=== PATIENT | male | born 1970 | race Caucasian/White ===

== ENCOUNTER 2021-03-08 08:46 | Emergency (ER) | payer SELFPAY ==
--- NOTE | 2021-03-08 08:47 | W.ED.ABDPA2 ---
HPI - Abdominal Pain General: Chief Complaint: Abdominal Pain Stated Complaint: abd pain Time Seen by Provider: 03/08/21 08:47 History of Present Illness: HPI narrative: 50-year-old male presents emergency room with complaint of abdominal pain and small amount of rectal bleeding. He has chronic epigastric discomfort and reflux. He takes omeprazole regularly. Patient is a history of hemorrhoids around a year ago he had a colonoscopy there was no significant findings other than the hemorrhoids at that time and he underwent surgery for the hemorrhoids. He is not had any fever sweats or chills no nausea vomiting or diarrhea, no melena hematemesis or cough coffee-ground emesis. He had a couple loose stools with streaks of bright red blood he describes his stools as light-colored. No history of upper GI bleed in the past Denies fever shortness of breath denies any dysuria urgency or frequency MD elicited complaint: abdominal pain Pertinent past history: other (Hemorrhoids) Onset (ago): hour(s) Pain Consistency: intermittent Location: Epigastric and LUQ Severity: mild Quality: cramping and aching Radiation: none Migration to: no migration Exacerbating factors: eating Relieving factors: nothing Associated Symptoms: Reports bloating, change in stool character, hematochezia, nausea and poor appetite; Denies anorexia, belching, change in bowel habits, chills, coffee ground emesis, constipation, GI cramping, diarrhea, dyspepsia, dysuria, excessive flatus, fever(s), heartburn, hematuria, hematemesis, fecal incontinence, loose stools, melena, syncope and vomiting Review of Systems Const: Denies: fever(s) or chills ENMT: Denies: throat pain, ear or mastoid pain, nasal discharge or nasal congestion Card: Denies: syncope Resp: Denies: dyspnea, productive cough or non-productive cough GI: Reports: nausea, bloating, change in stool character and hematochezia; Denies: vomiting, hematemesis, coffee ground emesis, heartburn, diarrhea, constipation, GI cramping, belching, excessive flatus, fecal incontinence, change in bowel habits or melena : Denies: dysuria or hematuria Skin/Breast: Denies: rash or pruritus Physical Exam Const: COMMON NORMALS: no acute distress GENERAL APPEARANCE: cooperative and comfortable ORIENTATION/CONSCIOUSNESS: Yes awake, Yes oriented to person, Yes oriented to place and Yes oriented to time HENMT: COMMON NORMALS: normocephalic, atraumatic, hearing grossly normal bilaterally and external ears normal HEAD & SCALP: normocephalic and atraumatic EXTERNAL EAR: Yes external ears normal Neck/C-Spine: COMMON NORMALS: no JVD Resp: COMMON NORMALS: normal respiratory effort, No retractions, No use of accessory muscles and clear to auscultation bilaterally AUSCULTATION: clear to auscultation bilaterally Cardio: COMMON NORMALS: no JVD, regular rate, regular rhythm and No murmurs present (Cardio) RATE: regular rate RHYTHM: regular rhythm GI: COMMON NORMALS: Soft to palpation and No hepatosplenomegaly present AUSCULTATION: Yes normoactive bowel sounds PALPATION: Yes Soft to palpation, No Tenderness to palpation present (GI), No Guarding due to palpation present (GI) and Yes No hepatosplenomegaly present OTHER: On rectal exam there are small noninflamed hemorrhoids at the rectal urge none appear to be thrombosed there is no active bleeding no fissures that I can identify. Extremity: COMMON NORMALS: normal to inspection, capillary refill normal, no clubbing, cyanosis or edema, no calf tenderness and no pedal edema Neuro: SENSORIUM/ORIENTATION: Yes oriented to person, Yes oriented to place and Yes oriented to time Skin: COMMON NORMALS: no rashes or lesions noted GENERAL SKIN EXAM: no rashes or lesions noted Course Vital Signs: Vital signs: Vital Signs Temperature 97.3 F L 03/08/21 08:49 Pulse Rate 74 03/08/21 10:49 Respiratory Rate 15 03/08/21 10:49 Blood Pressure 146/93 03/08/21 10:49 Pulse Oximetry 93 03/08/21 10:49 MDM - Abdominal Pain MDM Narrative: Medical decision making narrative: Patient had colonoscopy a year ago and had hemorrhoid surgery subsequent to it. He had some left upper quadrant pain earlier but has not had any hematemesis. Has not had any melenic stools. Aileen go ahead and discharge him home with some Anusol as well as pantoprazole we will set him up to see surgery for possible EGD and evaluation of the hemorrhoids. His hemoglobin is 15 3 there is no active bleeding and think he can be safely discharged at this point return if he has problems. Lab Data: Labs: Lab Results 03/08/21 03/08/21 03/08/21 Range/Units 09:05 09:05 09:12 WBC 10.2 H (4.0-10.0) 10^3/ uL RBC 5.17 (4.1-5.3) 10^6/u L Hgb 15.3 (11.7-16.6) g/dL Hct 44.7 (42.0-52.0) % MCV 86.5 (80-94) fL MCH 29.6 (28.0-34.0) pg MCHC 34.2 (30.0-36.0) g/dL RDW 12.2 (12.1-15.1) % Plt Count 288 (130-400) 10^3/c mm MPV 10.6 H (7.4-10.4) fL Neut % (Auto) 67.2 % Lymph % (Auto) 21.2 % [place] % (Auto) 7.3 % Eos % (Auto) 3.3 % Baso % (Auto) 0.6 % Neut # (Auto) 6.87 (1.8-7.7) 10^3/u L Lymph # (Auto) 2.2 (0.8-4.8) 10^3/u L [place] # (Auto) 0.8 (0.2-0.9) 10^3/u L Eos # (Auto) 0.3 (0.0-0.8) 10^3/u L Baso # (Auto) 0.1 (0.0-0.1) 10^3/u L Nucleated RBC % (a uto) 0 % Nucleated RBCs # 0.0 /100WBC Sodium 137 (136-145) mmol/L Potassium 3.8 (3.5-5.1) mmol/L Chloride 99 (98-107) mmol/L Carbon Dioxide 26 (22-29) mmol/L Anion Gap 15.8 (5-19) BUN 11 (6-20) mg/dL Creatinine 0.6 L (0.7-1.2) mg/dL GFR Calculation 143.2 H (90-130) mL/min Glucose 122 H (65-115) mg/dL Calculated Osmolal ity 285 (285-295) mOsm/k g Calcium 8.7 (8.5-10.5) mg/dL Total Bilirubin 0.5 (0.15-1.2) mg/dL AST 20 (0-40) U/L ALT 30 (0-41) U/L Alkaline Phosphata se 62 (40-130) IU/L Total Protein 7.5 (6.6-8.7) g/dL Albumin 4.3 (3.5-5.2) g/dL Globulin 3.2 (1.3-4.6) g/dL Lipase 46 (13-60) U/L Urine Color Yellow (Yellow) Urine Appearance Clear (CLEAR) Urine pH 9 H (5-7) Ur Specific Gravit y 1.015 (1.005-1.030) Urine Protein Neg (Negative) Urine Glucose (UA) Norm (Normal) Urine Ketones Negative (Negative) Urine Blood Neg (Negative) Urine Nitrate Negative (Negative) Urine Bilirubin Neg (Negative) Prot Sulfosalicyli c Acd Negative (Negative) Urine Urobilinogen Norm (Negative) mg/dL Ur Leukocyte Monika ase Negative (Negative) Discharge Plan Discharge Patient Disposition: Home Clinical Impression: Rectal bleeding Condition: Stable Prescriptions: New pantoprazole 40 mg tablet,delayed release (DR/EC) 40 mg PO DAILY 56 Days RF: 0 Anucort-HC 25 mg suppository 25 mg WA TID 14 Days Qty: 42 RF: 0 Discharge Orders: Discharge ED (Routine); Ordered 03/08/21 Ordered By: Geronimo Saleh Discharge Diet: Usual diet Discharge Activity: Increase activity as tolerated Patient Instructions: Opioid Safety Activity Restrictions/Additional Instructions: Case management will call you to follow-up with surgery. Coding Level of Care Code ED Release Of Information Clerk for Jhonatan Fwd Exam Comprehensive
[2021-03-08 08:49] VITALS: BP 139/100; PULSE 76; RESP 16; TEMP 36.3; O2SAT 97; BMI 31.1
[2021-03-08 09:15] LABS: Basophils # 0.1 10^3/uL (0.0-0.1); Basophils % 0.6 %; Eosinophils # 0.3 10^3/uL (0.0-0.8); Eosinophils % 3.3 %; Hematocrit 44.7 % (42.0-52.0); Hemoglobin 15.3 g/dL (11.7-16.6); Lymphocytes # 2.2 10^3/uL (0.8-4.8); Lymphocytes % 21.2 %; Mean Corpuscular HGB Conc 34.2 g/dL (30.0-36.0); Mean Corpuscular Hemoglobin 29.6 pg (28.0-34.0); Mean Corpuscular Volume 86.5 fL (80-94); Mean Platelet Volume 10.6 fL (7.4-10.4); Monocytes # 0.8 10^3/uL (0.2-0.9); Monocytes % 7.3 %; Neutrophils # 6.87 10^3/uL (1.8-7.7); Neutrophils % 67.2 %; Nucleated Red Blood Cells % 0 %; Platelet Count 288 10^3/cmm (130-400); Red Blood Count 5.17 10^6/uL (4.1-5.3); Red Cell Distribution Width 12.2 % (12.1-15.1); White Blood Count 10.2 10^3/uL (4.0-10.0)
[2021-03-08 09:18] LABS: Add Urine Microscopic? NO; Charge for UA Resulting for Rev
[2021-03-08 09:21] LABS: Bilirubin Urine Neg (Negative); Blood Urine Neg (Negative); Glucose Urine UA Norm (Normal); Ketones Urine Negative (Negative); Leukocyte Esterase Urine Negative (Negative); Nitrate Urine Negative (Negative); Protein Urine Neg (Negative); Specific Gravity, Urine 1.015 (1.005-1.030); Sulfosalicylic Acid Urine Negative (Negative); Urine Appearance Clear (CLEAR); Urine Color Yellow (Yellow); Urobilinogen Urine Norm (Negative); pH Urine 9 (5-7)
[2021-03-08 09:38] LABS: Alanine Aminotransferase 30 U/L (0-41); Albumin Level 4.3 g/dL (3.5-5.2); Alkaline Phosphatase 62 IU/L (40-130); Anion Gap 15.8 (5-19); Aspartate Amino Transferase 20 U/L (0-40); Blood Urea Nitrogen 11 mg/dL (6-20); Calcium 8.7 mg/dL (8.5-10.5); Carbon Dioxide 26 mmol/L (22-29); Chloride 99 mmol/L (98-107); Globulin 3.2 g/dL (1.3-4.6); Glomerular Filtration Rate 143.2 mL/min (90-130); Glucose 122 mg/dL (65-115); Lipase 46 U/L (13-60); Osmolality Calculated 285 mOsm/kg (285-295); Potassium 3.8 mmol/L (3.5-5.1); Sodium 137 mmol/L (136-145); Total Bilirubin 0.5 mg/dL (0.15-1.2); Total Protein 7.5 g/dL (6.6-8.7)
[2021-03-08 10:49] VITALS: BP 146/93; PULSE 74; RESP 15; O2SAT 93
--- NOTE | 2021-03-08 14:20 | DCPLANNER ---
Addendum entered by Eleanor Clark 03/12/21 07:04: manager agriculture was told that clinic called patient to schedule a follow appointment and that patient stated that he would call the clinic back to schedule a follow up appointment. Original Note: manager agriculture had message to schedule a follow up appointment for patient with general surgery. manager agriculture emailed patients information to Nelia at [facility] General Surgery. Patients information will be printed and reviewed. Clinic will call patient with appointment information.
== END 2021-03-08 10:50 | disposition home or self-care (01) ==
PROVIDERS: Emergency Provider Family Medicine
DX: K62.5 Hemorrhage of anus and rectum (principal)
CPT/HCPCS: 80053; 81003; 83690; 85025; 99282

== ENCOUNTER 2024-04-03 18:30 | Inpatient (IN) | payer SELFPAY ==
[2024-04-03] VITALS (7 sets, daily range): BP systolic 117–170; BP diastolic 80–116; PULSE 84–130; RESP 16–20; TEMP 37.1; O2SAT 93–99; BMI 34.2
--- NOTE | 2024-04-03 19:43 | XRR_ITS ---
PROCEDURE INFORMATION: Exam: XR Chest Exam date and time: 04/03/2024 8:01 PM Age: 54 years old Clinical indication: Patient HX: C/O palpitations. TECHNIQUE: Imaging protocol: Radiologic exam of the chest. Views: 1 view. COMPARISON: No relevant prior studies available. FINDINGS: Lungs: Unremarkable. No consolidation. Pleural spaces: Unremarkable. No pleural effusion. No pneumothorax. Heart/Mediastinum: Unremarkable. No cardiomegaly. Bones/joints: Unremarkable. XR/XR chest 1V portable [id number] IMPRESSION: No acute findings.
--- NOTE | 2024-04-03 19:43 | ECG_ITS ---
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 Measurements Intervals [place] Rate: 108 P: 29 WA: 175 QRS: 5 QRSD: 92 T: 53 QT: 315 QTc: 423 Interpretive Statements SINUS TACHYCARDIA NONSPECIFIC T-WAVE ABNORMALITY ABNORMAL RHYTHM ECG No previous ECG available for comparison Electronically Signed On 04-04-2024 13:27:47 CDT by Leoncio Bahena M.D. [email or web address] Labsohiohealth riverside [email or web address]/[id number]
--- NOTE | 2024-04-03 19:52 | CTR_ITS ---
PROCEDURE INFORMATION: Exam: CT Abdomen And Pelvis Without Contrast Exam date and time: 04/03/2024 8:09 PM Age: 54 years old Clinical indication: Abdominal pain; Patient HX: C/O left flank pain. ; Additional info: L flank pain TECHNIQUE: Imaging protocol: Computed tomography of the abdomen and pelvis without contrast. Radiation optimization: All CT scans at this facility use at least one of these dose optimization techniques: automated exposure control; mA and/or kV adjustment per patient size (includes targeted exams where dose is matched to clinical indication); or iterative reconstruction. COMPARISON: CR (CHEST, ) 04/03/2024 8:01 PM RADIATION DOSE METRICS: Total DLP (mGy-cm): 954.26 FINDINGS: Liver: Hepatic steatosis. Gallbladder and biliary ducts: Normal. No calcified stones. No ductal dilation. Pancreas: Normal. No ductal dilation. Spleen: Normal. No splenomegaly. Adrenal glands: Normal. No mass. Kidneys and ureters: Normal. No hydronephrosis. Stomach and bowel: Prominent fluid in the stomach and small bowel may reflect a gastroenteritis. Appendix: No evidence of appendicitis. Intraperitoneal space: Unremarkable. No free air. No significant fluid collection. Vasculature: Unremarkable. No abdominal aortic aneurysm. Lymph nodes: Unremarkable. No enlarged lymph nodes. Urinary bladder: Urinary bladder wall thickening with surrounding edema, please correlate for cystitis. Reproductive: Prostate gland enlarged. Bones/joints: Unremarkable. No acute fracture. Soft tissues: Small bilateral fat containing inguinal hernias without bowel or inflammation. CT/CT kidney stone [id number] IMPRESSION: 1. Prominent fluid in the stomach and small bowel may reflect a gastroenteritis. 2. Urinary bladder wall thickening with surrounding edema, please correlate for cystitis. 3. Prostate gland enlarged. 4. Hepatic steatosis. 5. Small bilateral fat containing inguinal hernias without bowel or inflammation.
[2024-04-03 20:04] LABS: Basophils # 0.1 10^3/uL (0.0-0.1); Basophils % 0.3 %; Eosinophils # 10.6 10^3/uL (0.0-0.8); Eosinophils % 33.8 %; Hematocrit 47.6 % (37-53); Lymphocytes # 2.2 10^3/uL (0.8-4.8); Lymphocytes % 7.1 %; Mean Corpuscular HGB Conc 35.7 g/dL (30-55); Mean Corpuscular Hemoglobin 30.6 pg (27-33); Mean Corpuscular Volume 85.6 fl (82-101); Mean Platelet Volume 10.4 fL (7.4-10.4); Monocytes # 1.9 10^3/uL (0.2-0.9); Monocytes % 6.2 %; Neutrophils # 16.23 10^3/uL (1.8-7.7); Neutrophils % 52.1 %; Nucleated Red Blood Cells % 0 %; Platelet Count 294 10^3/cmm (157-399); Red Blood Count 5.56 10^6/uL (3.85-5.65); Red Cell Distribution Width 13.1 % (12.1-15.1)
[2024-04-03] MEDS: ondansetron 2 mg/ML SDV 2 mL 4 MG IVP (20:07)
[2024-04-03] MEDS: ketorolac 30 mg/mL INJ IVP (20:07)
[2024-04-03] MEDS: sodium chloride 0.9% 1,000 ML 999 ML IV ×2 (20:07→22:14)
[2024-04-03 20:16] LABS: Amphetamines Screen Urine Negative (Negative); Barbiturates Screen Urine Negative (Negative); Benzodiazepines Screen Urine Negative (Negative); Cocaine Screen Urine Negative (Negative); Opiate Screen Urine Negative (Negative); PCP Screen Urine Negative (Negative); THC Screen Urine Negative (Negative)
[2024-04-03 20:22] LABS: Alanine Aminotransferase 29 U/L (0-41); Albumin Level 4.6 g/dL (3.5-5.2); Alkaline Phosphatase 76 U/L (40-130); Anion Gap 18.7 (5-19); Aspartate Amino Transferase 16 U/L (0-40); Blood Urea Nitrogen 10 mg/dL (6-20); C Reactive Protein 95.5 mg/L (0.0-4.9); Calcium 9.8 mg/dL (8.5-10.5); Carbon Dioxide 23 mmol/L (22-29); Chloride 96 mmol/L (98-107); Creatinine Clr Calc Pharmacy 135.3817; Globulin 3.8 g/dL (1.3-4.6); Glomerular Filtration Rate 101.1 mL/min (90-130); Glucose 152 mg/dL (65-115); Osmolality Calculated 280 mOsm/kg (285-295); Potassium 3.7 mmol/L (3.5-5.1); Sodium 134 mmol/L (136-145); Total Bilirubin 0.8 mg/dL (0.15-1.2); Total Protein 8.4 g/dL (6.6-8.7)
[2024-04-03 20:25] LABS: Slide Review Slide Review Perform; White Blood Count 31.17 10^3/uL (3.29-11.43)
[2024-04-03 20:31] LABS: Add Urine Microscopic? YES; Bilirubin Urine Neg (Negative); Blood Urine 2+ (Negative); Glucose Urine UA Norm (Normal); Ketones Urine 1+ (Negative); Leukocyte Esterase Urine 2+ (Negative); Nitrate Urine Negative (Negative); Protein Urine Trace (Negative); Urine Appearance Cloudy (CLEAR); Urine Color Yellow (Yellow); Urobilinogen Urine Neg (Negative); pH Urine 9 (5-7)
[2024-04-03 20:32] LABS: Add Urine Culture? Yes; Bacteria Urine 1+ /hpf; Squamous Epithelial Cell Urine 0-4 /hpf (0-5); WBC Urine 55-80 /hpf (0-5)
--- NOTE | 2024-04-03 20:42 | ED_ITS ---
HPI - Abdominal Pain 2 General: Chief Complaint: Abdominal Pain Stated Complaint: Fever,N/V Time Seen by Provider: 04/03/24 19:13 History of Present Illness: 54-year-old male presents emergency depa rtment chief complaint of left-sided flank pain rating to his left anterior abdomen has been progressively worse last couple days patient report [place] is moderate nausea no vomiting reports no bowel changes reports also significant urinary frequency and burning and pain patient does not endorse any blood in his urine patient presents to the ER due to being persistently uncomfortable he does not endorse any prior history of any abdominal issues. Associated Symptoms: Reports GI cramping, dysuria and nausea; Denies chills, fever(s) and vomiting Review of Systems 2 General: Reports: 10 or more systems reviewed and unremarkable except in HPI and below Const: Denies: fever(s), chills, fatigue or malaise Eyes: Denies: change in vision or blurry vision Card: Denies: chest pain or palpitations Resp: Denies: dyspnea or productive cough GI: Reports: abdominal pain, nausea and GI cramping; Denies: vomiting : Reports: flank pain, dysuria, urinary frequency and urinary urgency Musc: Denies: extremity pain or extremity swelling Skin/Breast: Denies: rash or pruritus Neuro: Denies: headache(s) Psych: Denies: anxiety or depression Donny/Lymph: Denies: easy bleeding All/Imm: Denies: urticaria, throat swelling or facial swelling Physical Exam 2 Const: COMMON NORMALS: patient oriented x3 and healthy appearing; apparent distress (Patient is moderate distress due to pain) HENMT: COMMON NORMALS: normocephalic and atraumatic HEAD & SCALP: n ormocephalic and atraumatic Eye: COMMON NORMALS: Equal, round and reactive pupils present and EOMs intact bilaterally PUPIL: Yes Equal, round and reactive pupils present Neck/C-Spine: COMMON NORMALS: full ROM, supple and no JVD Lymph: LYMPHATIC: no lymphadenopathy noted Chest: COMMONS NORMALS: normal inspection of the chest and normal palpation of entire chest wall Resp: COMMON NORMALS: normal respiratory effort, No retractions and clear to auscultation bilaterally EFFORT & INSPECTION: Yes able to speak in complete sentences and Yes symmetric chest movement AUSCULTATION: clear to auscultation bilaterally Cardio: COMMON NORMALS: no JVD, regular rate and regular rhythm RATE: r egular rate RHYTHM: regular rhythm GI: COMMON NORMALS: negative for Normal to inspection, nondistended, normoactive bowel sounds present, negative for Soft to palpation, negative for non-tender (Moderate pain to palpation most located to the left lateral flank and left ) and negative for no bruits (Moderate diffuse guarding appreciated) INSPECTION: Yes normal to inspection PALPATION: No Soft to palpation : COMMON NORMALS: Yes no CVA tenderness BLADDER/KIDNEY EXAM: Yes no CVA tenderness Back/Pelvis: COMMON NORMALS: no CVA tenderness Extremity: COMMON NORMALS: normal to inspection and full ROM Neuro: COMMON NORMALS: patient oriented x3, CN's II-XII intact bilaterally, moves all extremities and no focal motor deficits Psych: COMMON NORMALS: mental status grossly normal, Normal thought process present, cooperative and normal affect THOUGHT PROCESS: Normal thought process present Skin: COMMON NORMALS: no rashes or lesions noted GENERAL SKIN EXAM: no rashes or lesions noted Course 2 Vital Signs: Vital signs: Vital Signs Temperature 98.8 F 04/03/24 18:35 Pulse Rate 94 04/03/24 21:31 Respiratory Rate 16 04/03/24 21:31 Blood Pressure 117/80 04/03/24 21:31 Pulse Oximetry 94 04/03/24 21:31 Oxygen Delivery Me thod Room Air 04/03/24 21:31 MDM - Abdominal Pain Medical Decision Making Due to patient's symptoms and condition IV is established IV fluids were given for hydration lab work imaging obtained underlying concerns of kidney stone versus others prominent we will continue to follow CT imaging revealed significant findings suggestive of significant site cystitis patient had no renal impairment but has substantial white count as well as lactic acid elevation underlying concerns of sepsis is prominent discussed patient's case with Dr. Carrera. Patient was updated that he is agreeable to admission. Lab Data 04/03/24 19:55 04/03/24 19:55 Labs/Radiology: Radiology Impressions Chest X-Ray 04/03/24 19:43 IMPRESSION: No acute findings. Abdomen/Pelvis CT 04/03/24 19:52 IMPRESSION: 1. Prominent fluid in the stomach and small bowel may reflect a gastroenteritis. 2. Urinary bladder wall thickening with surrounding edema, please correlate for cystitis. 3. Prostate gland enlarged. 4. Hepatic steatosis. 5. Small bilateral fat containing inguinal hernias without bowel or inflammation. Laboratory Results WBC 31.17 10^3/uL (3.29-11.43) H* 04/03/24 19:55 RBC 5.56 10^6/uL (3.85-5.65) 04/03/24 19:55 Hgb 17.00 g/dL (11.27-16.99) H 04/03/24 19:55 Hct 47.6 % (37-53) 04/03/24 19:55 MCV 85.6 fl (82-101) 04/03/24 19:55 MCH 30.6 pg (27-33) 04/03/24 19:55 MCHC 35.7 g/dL (30-55) 04/03/24 19:55 RDW 13.1 % (12.1-15.1) 04/03/24 19:55 Plt Count 294 10^3/cmm (157-399) 04/03/24 19:55 MPV 10.4 fL (7.4-10.4) 04/03/24 19:55 Neut % (Auto) 52.1 % 04/03/24 19:55 Lymph % (Auto) 7.1 % 04/03/24 19:55 [place] % (Auto) 6.2 % 04/03/24 19:55 Eos % (Auto) 33.8 % 04/03/24 19:55 Baso % (Auto) 0.3 % 04/03/24 19:55 Neut # (Auto) 16.23 10^3/uL (1.8-7.7) H 04/03/24 19:55 Lymph # (Auto) 2.2 10^3/uL (0.8-4.8) 04/03/24 19:55 [place] # (Auto) 1.9 10^3/uL (0.2-0.9) H 04/03/24 19:55 Eos # (Auto) 10.6 10^3/uL (0.0-0.8) H 04/03/24 19:55 Baso # (Auto) 0.1 10^3/uL (0.0-0.1) 04/03/24 19:55 Nucleated RBC % (auto) 0 % 04/03/24 19:55 Nucleated RBCs # 0.0 /100WBC 04/03/24 19:55 Sodium 134 mmol/L (136-145) L 04/03/24 19:55 Potassium 3.7 mmol/L (3.5-5.1) 04/03/24 19:55 Chloride 96 mmol/L (98-107) L 04/03/24 19:55 Carbon Dioxide 23 mmol/L (22-29) 04/03/24 19:55 Anion Gap 18.7 (5-19) 04/03/24 19:55 BUN 10 mg/dL (6-20) 04/03/24 19:55 Creatinine 0.8 mg/dL (0.7-1.2) 04/03/24 19:55 GFR Calculation 101.1 mL/min (90-130) 04/03/24 19:55 Glucose 152 mg/dL (65-115) H 04/03/24 19:55 Calculated Osmolality 280 mOsm/kg (285-295) L 04/03/24 19:55 Lactic Acid 2.6 mmol/L (0.5-2.2) H 04/03/24 19:55 Calcium 9.8 mg/dL (8.5-10.5) 04/03/24 19:55 Total Bilirubin 0.8 mg/dL (0.15-1.2) 04/03/24 19:55 AST 16 U/L (0-40) 04/03/24 19:55 ALT 29 U/L (0-41) 04/03/24 19:55 Alkaline Phosphatase 76 U/L (40-130) 04/03/24 19:55 C-Reactive Protein 95.5 mg/L (0.0-4.9) H 04/03/24 19:55 Total Protein 8.4 g/dL (6.6-8.7) 04/03/24 19:55 Albumin 4.6 g/dL (3.5-5.2) 04/03/24 19:55 Globulin 3.8 g/dL (1.3-4.6) 04/03/24 19:55 Urine Color Yellow (Yellow) 04/03/24 19:13 Urine Appearance Cloudy (CLEAR) A 04/03/24 19:13 Urine pH 9 (5-7) H 04/03/24 19:13 Ur Specific [place] 1.010 (1.005-1.030) 04/03/24 19:13 Urine Protein Trace (Negative) 04/03/24 19:13 Urine Glucose (UA) Norm (Normal) 04/03/24 19:13 Urine Ketones 1+ (Negative) H 04/03/24 19:13 Urine Blood 2+ (Negative) H 04/03/24 19:13 Urine Nitrate Negative (Negative) 04/03/24 19:13 Urine Bilirubin Neg (Negative) 04/03/24 19:13 Urine Urobilinogen Neg mg/dL (Negative) 04/03/24 19:13 Ur Leukocyte Esterase 2+ (Negative) H 04/03/24 19:13 Urine RBC 5-10 /hpf (0-2) H 04/03/24 19:13 Urine WBC 55-80 /hpf (0-5) H 04/03/24 19:13 Ur Squamous Epith Cells 0-4 /hpf (0-5) H 04/03/24 19:13 Amorphous Sediment Not Reportable 04/03/24 19:13 Urine Bacteria 1+ /hpf (NONE) H 04/03/24 19:13 Urine Opiates Screen Negative ng/mL (Negative) 04/03/24 19:13 Ur Barbiturates Screen Negative ng/mL (Negative) 04/03/24 19:13 Ur Phencyclidine Scrn Negative ng/mL (Negative) 04/03/24 19:13 Ur Amphetamines Screen Negative ng/mL (Negative) 04/03/24 19:13 U Benzodiazepines Scrn Negative ng/mL (Negative) 04/03/24 19:13 Urine Cocaine Screen Negative ng/mL (Negative) 04/03/24 19:13 U Marijuana (THC) Screen Negative ng/mL (Negative) 04/03/24 19:13 All radiology interpretation(s) finalized by discharge Discharge Plan Discharge Patient Disposition: Admitted As Inpatient Clinical Impression: Sepsis secondary to UTI Condition: Stable Prescriptions: No Action omeprazole 20 mg capsule,delayed release(DR/EC) 20 mg PO DAILY nystatin 100,000 unit/gram ointment 1 applic topical QID Qty: 30 0RF Coding Level of Care Code ED Ribbon Sweatband Operator for Chg Moisés
--- NOTE | 2024-04-03 21:53 | PC.NURSE ---
abx delayed due to needing blood cultures drawn.
[2024-04-03 21:56] LABS: Lactic Sepsis W/Reflex 2.6 mmol/L (0.5-2.2)
[2024-04-03] MEDS: fentaNYL 50 mcg/mL INJ 2mL IVP (22:39)
[2024-04-03] MEDS: levofloxacin-dextrose 5 % 750 MG/150 ML PREMIX 100 MG IV (22:39)
[2024-04-03 23:31] LABS: Reflex Lactate Order REFLEX LACTIC ORDERD
[2024-04-04] VITALS (9 sets, daily range): BP systolic 119–149; BP diastolic 80–98; PULSE 78–96; RESP 16–18; TEMP 36.9–37.2; O2SAT 92–97; BMI 33.5
--- NOTE | 2024-04-04 00:23 | P.HP_ITS ---
Providers/Chief Complaint 2 Admitting Physician: Kishore Carrera MD Chief Complaint: Fever,N/V History of Present Illness Pablo Unger is a 54 year old male present to the hospital with 2 to 3-day history of generalized weakness and dysuria. Patient is stating that he was in usual state of health until 3 days ago he start experiencing generalized weakness and malaise, he is endorsing productive fevers, nausea without any chest pain shortness of breath, fever or vomiting. Patient does not have established history of BPH, in the ER he was diagnosed with sepsis related to UTI, no sign of postrenal obstruction or kidney stones, patient has gastroenteritis and signs of cystitis. He has white count of 30,000. Review of Systems 2 Const: Reports: fever(s) Eyes: Denies: change in vision ENMT: Denies: throat pain Card: Denies: chest pain Resp: Denies: dyspnea GI: Denies: abdominal pain : Denies: flank pain Musc: Denies: neck pain Medications/Allergies Home Medications Medication Instructions Recorded Confirmed Last Taken Type nystatin 100,000 unit/gram topical 1 applic topical QID #30 grams 09/25/23 09/25/23 Unknown Rx ointment omeprazole 20 mg capsule,delayed 20 mg PO DAILY 09/25/23 09/25/23 Unknown History release Allergies Allergy/AdvReac Type Severity Reaction Status Date / Time ampicillin Allergy Unknown Verified 09/25/23 14:45 Vitals/I&O/Wt Last Vital Signs Temp 98.8 F 04/03/24 18:35 Pulse 93 04/03/24 23:29 Resp 16 04/03/24 23:29 BP 138/92 04/03/24 23:29 Pulse Ox 97 04/03/24 23:29 O2 Del Method Room Air 04/03/24 23:29 04/03/24 04/03/24 04/04/24 14:59 22:59 06:59 Intake Total 1000 / 1000 1150 / 2150 Balance 1000 / 1000 1150 / 2150 Weight last 48 hrs Weight 111.13 kg Physical Exam 2 Narrative: Awake and alert Euvolemic S1, S2 Currently on room air Nonfocal neuroexam Assessment Severe tenderness negative Pleasant and cooperative Complaining of nausea S1, S2 Abdomen soft Data 04/03/24 19:55 04/03/24 19:55 Micro: Microbiology 04/03/24 22:23 Blood Culture - Preliminary Blood SPECIMEN COLLECTED 04/03/24 22:21 Blood Culture - Preliminary Blood SPECIMEN COLLECTED A&P Assessment and plan (1) Sepsis secondary to UTI: Plan Sepsis related to UTI No sign of obstruction Sepsis criteria met with tachypnea tachycardia leukocytosis high lactic acid Source is his UTI No significant endorgan damage Hydronephrosis Gastroenteritis With UTI Will use Zosyn for now Request urine and blood cultures Septic bolus has been administered in the ER I will continue IV fluids overnight Full code [place] diet for now Patient will need PCP and outpatient neurology follow-up, check PSA level, add tamsulosin, Likely etiology for UTI seems to be incomplete bladder emptying, Attestations 2 Medical Necessity Statement*: Anticipating more than 2 midnights Diagnoses Sepsis secondary to UTI A41.9; N39.0
[2024-04-04] MEDS: ondansetron 2 mg/ML SDV 2 mL 4 MG IVP ×3 (00:45→14:38)
[2024-04-04] MEDS: sodium chloride 0.9% 1,000 ML 75 ML IV ×2 (00:48→14:38)
[2024-04-04] MEDS: enoxaparin 40 mg/0.4 mL Syringe SUBCUT (00:48)
[2024-04-04 00:54] LABS: Lactic Acid level (Lactate) 2.7 mmol/L (0.5-2.2)
[2024-04-04] MEDS: piperacillin-tazobactam 3.375 GM in sodium chloride 0.9% (plus) 50 ML IV ×3 (01:31→16:55)
[2024-04-04 01:51] LABS: Estmated Average Glucose 140; Hemoglobin A1C 6.5 % (4.0-6.0)
[2024-04-04 02:15] LABS: PSA Screen - Urology 13.85 ng/mL (0-4)
[2024-04-04] MEDS: metoclopramide 5 mg/mL SDV 2 mL IVP (03:15)
[2024-04-04 04:08] LABS: Basophils % 0.2 %; Hematocrit 43.6 % (37-53); Mean Corpuscular HGB Conc 34.2 g/dL (30-55); Mean Corpuscular Hemoglobin 30.1 pg (27-33); Mean Corpuscular Volume 88.1 fl (82-101); Monocytes # 1.7 10^3/uL (0.2-0.9); Monocytes % 6.4 %; Neutrophils # 22.93 10^3/uL (1.8-7.7); Neutrophils % 88.8 %; Nucleated Red Blood Cells % 0 %; Platelet Count 243 10^3/cmm (157-399); Red Blood Count 4.95 10^6/uL (3.85-5.65); Red Cell Distribution Width 13.6 % (12.1-15.1); White Blood Count 25.79 10^3/uL (3.29-11.43)
[2024-04-04 04:37] LABS: Anion Gap 17.4 (5-19); Blood Urea Nitrogen 13 mg/dL (6-20); C Reactive Protein 148.8 mg/L (0.0-4.9); Calcium 8.5 mg/dL (8.5-10.5); Carbon Dioxide 22 mmol/L (22-29); Chloride 100 mmol/L (98-107); Glomerular Filtration Rate 88.3 mL/min (90-130); Glucose 150 mg/dL (65-115); Osmolality Calculated 285 mOsm/kg (285-295); Potassium 3.4 mmol/L (3.5-5.1); Sodium 136 mmol/L (136-145)
--- NOTE | 2024-04-04 14:54 | PM.PN ---
Subjective Subjective: Admitted overnight. H&P and labs appreciated. Today morning patient was complaining of lower abdominal pain after which bladder scan was done and he was found to have 600 to 800 cc of retained urine. Cartwright catheter was placed and 600 cc of urine was evacuated. Patient denies any nausea, vomiting, headache. Has remained afebrile since admission. Later in the day patient did develop mild hematuria. Vitals/I&O/Wt Last Vital Signs Temp 98.5 F 04/04/24 11:21 Pulse 94 04/04/24 14:18 Resp 18 04/04/24 11:21 BP 147/94 04/04/24 11:21 Pulse Ox 96 04/04/24 11:21 O2 Del Method Room Air 04/04/24 11:21 04/03/24 04/04/24 04/04/24 22:59 06:59 14:59 Intake Total 1000 / 1000 1440 / 2440 2930 / 2930 Output Total 600 / 600 3700 / 3700 Balance 1000 / 1000 840 / 1840 -770 / -770 Weight last 48 hrs Weight 108.908 kg Weight 111.13 kg Physical Exam Narrative: General: Mild distress because of lower abdominal pain, AO x3 HEENT: PERRLA, pupils bilaterally equal and reactive Chest: Normal vesicular breath sounds, no added sounds, equal good air entry bilaterally CVS: S1-S2 regular, no murmurs, no tachycardia, no gallops, no rubs Abdomen: Soft, nontender, no organomegaly, bowel sounds present Neuro: No focal deficits, no facial deformity, AO x3, power 5/5 in all limbs Urinary Catheter Management: Cartwright: Cath Placed During This Visit: yes Urinary Catheter Date of Insertion: 04/04/24 Urinary Catheter Time of Insertion: 11:43 Quick SOFA Score: Respiratory Rate: 18 Blood Pressure: 147/94 Neil Coma Scale: 15 qSOFA Score: 0 If qSOFA score 2 or greater, continue: Blood Pressure Mean: 111 Bilirubin (mg/dl): 0.8 Platelets (x10?/ml): 243 Creatinine (mg/dl): 0.9 Evaluation: Current stage of sepsis: sepsis Sepsis stage criteria used: [facility] Sep-1 and Sepsis-3 Crystalloid fluids: 30 mL/kg crystalloid fluids ordered and initiated within 3 hours Blood cultures ordered: Yes Possible source: genitourinary Focused Exam: Vital signs: Temp Pulse Resp BP Pulse Ox O2 Del Method 04/04/24 14:18 94 04/04/24 11:21 98.5 F 95 18 147/94 96 Room Air 04/04/24 08:46 96 16 97 Room Air 04/04/24 08:06 98.6 F 93 17 126/81 93 Room Air Date exam was performed: 04/04/24 Time exam was performed: 14:57 Sepsis Screen No Definite Risk 04/03/24 23:29 Respiratory Rate 18 breaths/min (12 - 18) 04/04/24 11:21 Blood Pressure 147/94 mmHg 04/04/24 11:21 [place] Coma Scale Score 15 04/04/24 00:34 Quick SOFA Score 0 04/03/24 23:29 SOFA Score: [place] Coma Scale Score 15 04/04/24 00:34 Blood Pressure Mean 111 mmHg 04/04/24 11:21 Total Bilirubin 0.8 mg/dL (0.15-1.2) 04/03/24 19:55 Platelet Count 243 10^3/cmm (157-399) 04/04/24 02:32 Creatinine 0.9 mg/dL (0.7-1.2) 04/04/24 02:32 Data 04/04/24 02:32 04/04/24 02:32 Micro: Microbiology 04/03/24 22:23 Blood Culture - Preliminary Blood SPECIMEN COLLECTED 04/03/24 22:21 Blood Culture - Preliminary Blood SPECIMEN COLLECTED A&P Assessment and plan (1) Sepsis secondary to UTI: (2) Urinary retention: (3) Type 2 diabetes mellitus: Plan Sepsis related to UTI: No concerns for obstructive nephropathy on CT abdomen/pelvis. Patient did have significant urinary retention for which she required Cartwright catheterization and 600 cc of urine was evacuated. Maintain Cartwright catheter. Check blood culture, follow-up urine culture. For now continue with empiric IV Zosyn. De-escalate as per culture sensitivities. Patient having significant amount of urine output. Will manage with normal saline at 125 cc/h. Start on Flomax 0.4 mg daily. Given elevated CRP, PSA cannot rule out prostatitis. Will continue to monitor. Stool softener as needed. Patient will need urology follow-up as an outpatient given urinary retention seen during hospitalization. Type 2 diabetes mellitus: A1c elevated. No significant past history. Continue to monitor blood sugars daily for now. Carb consistent cardiac diet Full code Famotidine for PUD prophylaxis Lovenox for DVT prophylaxis. Attestations Medical Necessity Statement*: Requires further hospitalization for management of sepsis in setting of UTI, urinary retention Diagnoses Sepsis secondary to UTI A41.9; N39.0 Urinary retention R33.9 Type 2 diabetes mellitus E11.9
[2024-04-04 15:04] LABS: Procalcitonin 0.33 ng/mL (0-0.5); Thyroid Stimulating Hormone 1.05 uIU/mL (0.27-4.20)
[2024-04-04] MEDS: tamsulosin 0.4 mg Capsule PO (15:15)
[2024-04-04] MEDS: potassium chloride ER 20 mEq Tablet 40 MEQ PO (15:15)
[2024-04-04] MEDS: HYDROcodone-acetaminophen 5-325 mg Tablet 1 TAB PO (18:19)
--- NOTE | 2024-04-04 19:05 | PC.NURSE ---
SHIFT SUMMARY Patient was resting comfortably when I arrived today. Patient had voided a few times and complained of burning with urination but no other sensation. Later in the morning, patient complained of lots of abdominal pressure after voiding 300ml. This nurse bladder scanned patient and he had 800ml in bladder. Dr. James notified and le catheter was ordered. This nurse placed le catheter without difficulty. Patient tolerated moderately well. Patient dumped 1000ml of urine output quickly. Next time this nurse emptied catheter, hematuria was noted. Dr. James notified. This nurse has clamped patient's catheter and slowed down bladder emptying. At bedside report, patient has minimal complaints of pain and urine has become a dark yellow with a few blood clots. Greatly improved from previously. Patient was noted to have greater than 5000ml of urine output this shift.
[2024-04-05] VITALS (11 sets, daily range): BP systolic 100–152; BP diastolic 63–89; PULSE 71–94; RESP 17–18; TEMP 36.6–37.6; O2SAT 94–95
[2024-04-05] MEDS: piperacillin-tazobactam 3.375 GM in sodium chloride 0.9% (plus) 50 ML IV ×3 (00:04→18:31)
[2024-04-05] MEDS: HYDROcodone-acetaminophen 5-325 mg Tablet 1 TAB PO ×4 (00:05→21:13)
[2024-04-05] MEDS: enoxaparin 40 mg/0.4 mL Syringe SUBCUT (00:05)
[2024-04-05] MEDS: sodium chloride 0.9% 1,000 ML 75 ML IV (01:57)
[2024-04-05 05:14] LABS: Basophils # 0.1 10^3/uL (0.0-0.1); Basophils % 0.3 %; Eosinophils # 0.1 10^3/uL (0.0-0.8); Eosinophils % 0.5 %; Hematocrit 38.5 % (37-53); Lymphocytes # 1.7 10^3/uL (0.8-4.8); Lymphocytes % 8.7 %; Mean Corpuscular HGB Conc 33.2 g/dL (30-55); Mean Corpuscular Hemoglobin 29.8 pg (27-33); Mean Corpuscular Volume 89.7 fl (82-101); Mean Platelet Volume 10.7 fL (7.4-10.4); Monocytes # 1.3 10^3/uL (0.2-0.9); Monocytes % 6.6 %; Neutrophils # 16.06 10^3/uL (1.8-7.7); Neutrophils % 83.3 %; Nucleated Red Blood Cells % 0 %; Platelet Count 215 10^3/cmm (157-399); Red Blood Count 4.29 10^6/uL (3.85-5.65); Red Cell Distribution Width 13.7 % (12.1-15.1); White Blood Count 19.27 10^3/uL (3.29-11.43)
[2024-04-05 05:36] LABS: Estmated Average Glucose 134; Hemoglobin A1C 6.3 % (4.0-6.0)
[2024-04-05 05:39] LABS: Alanine Aminotransferase 23 U/L (0-41); Albumin Level 3.3 g/dL (3.5-5.2); Alkaline Phosphatase 66 U/L (40-130); Anion Gap 11.6 (5-19); Aspartate Amino Transferase 15 U/L (0-40); Blood Urea Nitrogen 9 mg/dL (6-20); Calcium 8.2 mg/dL (8.5-10.5); Carbon Dioxide 23 mmol/L (22-29); Chloride 105 mmol/L (98-107); Creatinine Clr Calc Pharmacy 153.1877; Globulin 3.2 g/dL (1.3-4.6); Glucose 116 mg/dL (65-115); Osmolality Calculated 282 mOsm/kg (285-295); Phosphorus 2.4 mg/dL (2.5-4.5); Potassium 3.6 mmol/L (3.5-5.1); Sodium 136 mmol/L (136-145); Total Bilirubin 0.7 mg/dL (0.15-1.2); Total Protein 6.5 g/dL (6.6-8.7)
[2024-04-05 05:42] LABS: Chol HDL Ratio 4.16 mg/dL (1.0-5.00); Cholesterol 129 mg/dL (0-200); HDL Cholesterol 31 mg/dL (60-100); LDL Cholesterol Calculated 75 mg/dL (50-129); LDL HDL Ratio 2.42 RATIO (0.00-3.22); Triglycerides 116 mg/dL (0-150)
[2024-04-05] MEDS: tamsulosin 0.4 mg Capsule PO (08:09)
--- NOTE | 2024-04-05 09:29 | PC.CHAP ---
Pastoral Care Encounter/Spiritual Assessment Type of Contact [] Declined wash test checker visit [] Patient/Family/Request visit [] Outpatient visit [] Follow-up visit [] Physician referral [] Code/Alert [x] Routine visit [] Staff referral [] Actively dying [] Patient sleeping [] Family support [] [] Out of room [] Palliative care [] [] Receiving care in room [] Pre-surgical visit [] Trauma [] Long length of stay [] ICU visit [] Other: Relational/Emotional Strength [] Patient feels connected with others/family/visitors/staff [] Distress [] Loneliness/isolation [] Abandonment Spirituality of Patient [x] Person of Bree [] Attends Taoism of their Bree [x] Believes in Prayer [] Reads Bible or Religion materials [] There are 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 issues 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 [x] Prayer [x] Active listening [] Non-anxious presence [] Spiritual/emotional support [] Crisis/trauma care [] Spiritual counseling [] Bereavement support [] Provided bereavement packet [x] Provided Bible/devotional materials [] Provided toy/stuffed animal, coloring book to patient or family member [] Provided Communion [] Anointing/[place] [] Salvation [x] Completed spiritual assessment [] Other: Impact on Illness or Injury [] Angry [] Fearful [] Anxious [] Often cries [] Exhaustion [] Unable to work [] Unable to attend pentecostalism [] Unable to walk/stand [] Unable to read [] Unable to drive [] Unable to eat/drink [] Unable to sleep [] Unable to be with family [] Patient intubated [] Other: Summary Time spent with patient 5 min
[2024-04-05] MEDS: sodium chloride 0.9% 1,000 ML 125 ML IV (10:58)
--- NOTE | 2024-04-05 17:00 | PC.NURSE ---
I was approached by Danica Szymanski CNA stating that patient's temperature was 99.6F. I presented to patient's room and assisted him in coughing and deep breathing techniques. Danica Szymanski is going to get patient up to the chair for his dinner and he states he will continue coughing and deep breathing. Upon reassessment, temperature was 98.9F at approximately 1800. Dr. Hewitt notified as an FYI. No new orders received at this time.
--- NOTE | 2024-04-05 18:12 | PC.NURSE ---
Patient has continued to have adequate and appropriate oral intake and urine output this shift. I called and spoke with Dr. Hewitt and he agreed to d/c Sodium Chloride 125 mL/hour. D/c'd fluids as ordered and started Zosyn. Informed patient of this information and he is in agreement with plan change. He denies further questions/concerns at this time.
--- NOTE | 2024-04-05 19:34 | PC.NURSE ---
Upon review of patient's documentation, it was noted he had DM II documented, however patient denies ever being diagnosed and has no orders for accuchecks or sliding scale insulin. I saw and spoke with Dr. Hewitt about this and his polyuria and polydipsia and he is in agreement that patient might need treatment for DM II. I placed an order for sliding scale and accuchecks per Dr. Hewitt's order and spoke with the patient about monitoring blood glucose during hospitalization, potential insulin administration, and potential for d/c on oral hypoglycemics. He verbalizes understanding and denies questions or concerns at this time.
[2024-04-05 20:36] LABS: Glucose Point of Care 103 mg/dL (70-110)
--- NOTE | 2024-04-05 22:11 | PM.PN ---
Subjective Subjective: He feels his condition is improving. He was having some mid abdominal discomfort which is improving. Occasionally if he sneezes or coughs experiences discomfort in the perineum. Vitals/I&O/Wt Last Vital Signs Temp 98.9 F 04/05/24 19:55 Pulse 94 04/05/24 21:43 Resp 18 04/05/24 19:55 BP 152/75 04/05/24 19:55 Pulse Ox 95 04/05/24 19:55 O2 Del Method Room Air 04/05/24 19:55 04/05/24 04/05/24 04/05/24 06:59 14:59 22:59 Intake Total 1388.75 / 6608.75 2080.417 / 2080.417 1600 / 3680.417 Output Total 700 / 7000 4100 / 4100 Balance 688.75 / -391.25 2080.417 / 2080.417 -2500 / -419.583 Weight last 48 hrs Weight 113.716 kg Weight 108.908 kg Physical Exam Const: COMMON NORMALS: patient oriented x3 and alert GENERAL APPEARANCE: cooperative ORIENTATION/CONSCIOUSNESS: Yes awake HENMT: COMMON NORMALS: oropharynx normal Neck/C-Spine: COMMON NORMALS: no JVD Resp: COMMON NORMALS: normal respiratory effort and clear to auscultation bilaterally AUSCULTATION: clear to auscultation bilaterally Cardio: COMMON NORMALS: no JVD, regular rhythm, S1 normal heart sound present, S2 normal heart sound present and No murmurs present (Cardio) RHYTHM: regular rhythm HEART SOUNDS: S1 normal heart sound present and S2 normal heart sound present GI: COMMON NORMALS: Normal to inspection, nondistended, normoactive bowel sounds present, Soft to palpation and non-tender PALPATION: Yes Soft to palpation Extremity: COMMON NORMALS: no joint enlargement and no pedal edema Neuro: COMMON NORMALS: patient oriented x3 and moves all extremities SENSORIUM/ORIENTATION: Yes alert Skin: COMMON NORMALS: no rashes or lesions noted GENERAL SKIN EXAM: no rashes or lesions noted Urinary Catheter Management: Cartwright: Cath Placed During This Visit: yes Reason for Continuing Indwelling Catheter: Acute Urinary Retention or Obstruction Urinary Catheter Date of Insertion: 04/04/24 Urinary Catheter Time of Insertion: 11:43 Data 04/05/24 04:41 07/15/24 04:41 Micro: Microbiology 04/03/24 19:13 Urine Culture - Final Urine,Clean Catch 04/03/24 22:23 Blood Culture - Preliminary Blood NEGATIVE TO DATE 04/03/24 22:21 Blood Culture - Preliminary Blood NEGATIVE TO DATE A&P Assessment and plan (1) Sepsis secondary to UTI: (2) Urinary retention: (3) Type 2 diabetes mellitus: Plan Sepsis related to UTI: Reviewed vitals, CBC, CMP, urine culture, blood culture, discussed with him possible complicated urinary tract infection with suspected prostatitis with noted sepsis, enlarged prostate on CT, symptoms, discussed challenges with treatment, need for prolonged antibiotic in case of prostatitis, he has been improving, otherwise and so far there is not evidence for abscess as per discussion, but will need to follow-up with urology, PCP for reassessment, including voiding trial, further assessment of his prostate, and discuss consideration of continuation of antibiotics for 3 weeks with further reassessment and possible extension. Reviewed noted leukocytosis with improvement down to 19 today. Afebrile. Tachycardia with improvement. Follow-up urine culture. For now continue Zosyn. No concerns for obstructive nephropathy on CT abdomen/pelvis. Patient did have significant urinary retention for which she required Cartwright catheterization and 600 cc of urine was evacuated. Maintain Cartwright catheter. Discussed with case finishing machine adjuster. Hematuria gradually improving. Some small/tiny clots today, had some mid abdominal discomfort which has been improving, bladder scan obtained 17 mL per discussion with RN. Having good oral intake. Hold further IV fluids for now, reassess intake and output, reassess volume status. Reassess electrolytes, at risk of electrolyte abnormality in case of ongoing polyuria. Is noted to have elevated A1c suggestive of diabetes at 6.5On 04/03. Today 6.3. Sliding scale insulin added. Will benefit from initiation of metformin if possible at discharge. Continue on Flomax 0.4 mg daily. Given elevated CRP, PSA cannot rule out prostatitis. Will continue to monitor. Discussed with him will need follow-up for reassessment of PSA, consideration of relationship prostatitis or further assessment for more dangerous causes, to exclude cancer. Stool softener as needed. Patient will need urology follow-up as an outpatient given urinary retention seen during hospitalization. Type 2 diabetes mellitus: A1c elevated. No significant past history. Continue to monitor blood sugars daily for now. Carb consistent cardiac diet Full code Famotidine for PUD prophylaxis Lovenox for DVT prophylaxis. Attestations Medical Necessity Statement*: Continue admission for assessment management of complicated UTI, suspected prostatitis, improving sepsis, hematuria, polyuria, at risk of dehydration, electrolyte abnormality. and High MDM includes amount and/or complexity of data reviewed/ordered [ resulted lab(s)/test(s), ordered lab(s)/test(s) and other healthcare professional discussion] as documented Diagnoses Sepsis secondary to UTI A41.9; N39.0 Urinary retention R33.9 Type 2 diabetes mellitus E11.9
[2024-04-06] VITALS: BP 125/82; PULSE 82; RESP 17; TEMP 36.8; O2SAT 95
[2024-04-06] MEDS: enoxaparin 40 mg/0.4 mL Syringe SUBCUT (01:03)
[2024-04-06] MEDS: piperacillin-tazobactam 3.375 GM in sodium chloride 0.9% (plus) 50 ML IV ×2 (01:03→08:33)
[2024-04-06] MEDS: HYDROcodone-acetaminophen 5-325 mg Tablet 1 TAB PO (03:35)
[2024-04-06 04:00] VITALS: BP 132/80; PULSE 77; RESP 18; TEMP 37.3; O2SAT 92
[2024-04-06 05:20] VITALS: PULSE 81
[2024-04-06 05:52] LABS: Basophils % 0.4 %; Eosinophils # 0.1 10^3/uL (0.0-0.8); Eosinophils % 1.4 %; Hematocrit 39.3 % (37-53); Lymphocytes # 0.9 10^3/uL (0.8-4.8); Lymphocytes % 11.3 %; Mean Corpuscular HGB Conc 34.4 g/dL (30-55); Mean Corpuscular Hemoglobin 30.5 pg (27-33); Mean Corpuscular Volume 88.7 fl (82-101); Mean Platelet Volume 10.4 fL (7.4-10.4); Monocytes # 0.7 10^3/uL (0.2-0.9); Monocytes % 9.2 %; Neutrophils # 6.13 10^3/uL (1.8-7.7); Neutrophils % 77.2 %; Nucleated Red Blood Cells % 0 %; Platelet Count 215 10^3/cmm (157-399); Red Blood Count 4.43 10^6/uL (3.85-5.65); Red Cell Distribution Width 13.2 % (12.1-15.1); White Blood Count 7.94 10^3/uL (3.29-11.43)
[2024-04-06 06:11] LABS: Glucose Point of Care 113 mg/dL (70-110)
[2024-04-06 06:13] LABS: Anion Gap 18.4 (5-19); Blood Urea Nitrogen 6 mg/dL (6-20); Calcium 8.5 mg/dL (8.5-10.5); Carbon Dioxide 22 mmol/L (22-29); Chloride 100 mmol/L (98-107); Creatinine Clr Calc Pharmacy 182.5921; Glomerular Filtration Rate 140.9 mL/min (90-130); Glucose 116 mg/dL (65-115); Osmolality Calculated 283 mOsm/kg (285-295); Potassium 3.4 mmol/L (3.5-5.1); Sodium 137 mmol/L (136-145)
[2024-04-06 07:26] VITALS: BP 125/83; PULSE 75; RESP 16; TEMP 37; O2SAT 95
--- NOTE | 2024-04-06 08:22 | PM.DCS ---
Discharge Providers Date of Admission: 04/03/24 22:16 Date of Discharge: April 06, 2024 Attending Provider at Admission: Kishore Carrera MD Attending Provider at Discharge: Manuel Hewitt Diagnoses at Discharge Discharge Diagnosis (1) Sepsis secondary to UTI: Status: Acute (2) Urinary retention: Status: Acute (3) Type 2 diabetes mellitus: Status: Acute Reason for Visit Reason for Visit: Fever,N/V Hospital Course Hospital Course 54-year-old gentleman admitted due to sepsis, with significant urinary retention presentation, elevated PSA, enlarged prostate on CT, perineal pain with cough or sneezing, with hematuria after relief of urinary obstruction was started on IV antibiotics treatment with Zosyn for complicated urinary tract infection, suspected prostatitis. Responded to treatment with gradual improvement and resolution of white count, tachycardia, subjectively improving as well. Hematuria gradually resolved. Blood culture and urine culture were negative. As per discussion with him he continues on antibiotic coverage with ciprofloxacin empirically for suspected prostatitis, he is keeping Cartwright in place as well until follow-up with urology, PCP for additional assessment of enlarged prostate, prostatitis, further follow-up on PSA levels, exclusion of other potential/serious causes including malignancy. He additionally was found that his prediabetes has returned/progressed, hemoglobin A1c up to 6.5, in addition to lifestyle changes discussed risk and benefits of starting metformin which she was prescribed from and he will start gradually. He understands the need to establish with a primary care provider. Knows to return to seek medical attention in case of worsening or new concerning symptoms. Physical Exam Const: COMMON NORMALS: patient oriented x3 and alert GENERAL APPEARANCE: cooperative ORIENTATION/CONSCIOUSNESS: Yes awake HENMT: COMMON NORMALS: oropharynx normal Neck/C-Spine: COMMON NORMALS: no JVD Resp: COMMON NORMALS: normal respiratory effort and clear to auscultation bilaterally AUSCULTATION: clear to auscultation bilaterally Cardio: COMMON NORMALS: no JVD, regular rhythm, S1 normal heart sound present, S2 normal heart sound present and No murmurs present (Cardio) RHYTHM: regular rhythm HEART SOUNDS: S1 normal heart sound present and S2 normal heart sound present GI: COMMON NORMALS: Normal to inspection, nondistended, normoactive bowel sounds present, Soft to palpation and non-tender PALPATION: Yes Soft to palpation : OTHER: Hematuria resolved Extremity: COMMON NORMALS: no joint enlargement and no pedal edema Neuro: COMMON NORMALS: patient oriented x3 and moves all extremities SENSORIUM/ORIENTATION: Yes alert Skin: COMMON NORMALS: no rashes or lesions noted GENERAL SKIN EXAM: no rashes or lesions noted Urinary Catheter Management: Cartwright: Cath Placed During This Visit: yes Reason for Continuing Indwelling Catheter: Acute Urinary Retention or Obstruction Urinary Catheter Date of Insertion: 04/04/24 Urinary Catheter Time of Insertion: 11:43 Discharge Data Studies Completed and Pending Completed Studies During Hospitalization Category Date Time Status CT abdomen renal stone [CT kidney stone [id number]] Stat Cat Scan 04/03/24 19:52 Completed XR chest 1V portable [id number] Stat Exams 04/03/24 19:43 Completed Pending at discharge Category Date Time Status Basic Metabolic Panel AM LABS Lab 04/07/24 04:00 Ordered Basic Metabolic Panel AM LABS Lab 04/08/24 04:00 Ordered Blood Culture Stat Lab 04/03/24 22:23 Results Chlamydia/Gonorrh RNA,TMA URO Routine Lab 04/05/24 09:48 Ordered Complete Blood Count w/Auto AM LABS Lab 04/07/24 04:00 Ordered Complete Blood Count w/Auto AM LABS Lab 04/08/24 04:00 Ordered Radiology Impressions Chest X-Ray 04/03/24 19:43 IMPRESSION: No acute findings. Abdomen/Pelvis CT 04/03/24 19:52 IMPRESSION: 1. Prominent fluid in the stomach and small bowel may reflect a gastroenteritis. 2. Urinary bladder wall thickening with surrounding edema, please correlate for cystitis. 3. Prostate gland enlarged. 4. Hepatic steatosis. 5. Small bilateral fat containing inguinal hernias without bowel or inflammation. Laboratory Results WBC 7.94 10^3/uL (3.29-11.43) 04/06/24 05:46 RBC 4.43 10^6/uL (3.85-5.65) 04/06/24 05:46 Hgb 13.50 g/dL (11.27-16.99) 04/06/24 05:46 Hct 39.3 % (37-53) 04/06/24 05:46 MCV 88.7 fl (82-101) 04/06/24 05:46 MCH 30.5 pg (27-33) 04/06/24 05:46 MCHC 34.4 g/dL (30-55) 04/06/24 05:46 RDW 13.2 % (12.1-15.1) 04/06/24 05:46 Plt Count 215 10^3/cmm (157-399) 04/06/24 05:46 MPV 10.4 fL (7.4-10.4) 04/06/24 05:46 Neut % (Auto) 77.2 % 04/06/24 05:46 Lymph % (Auto) 11.3 % 04/06/24 05:46 [place] % (Auto) 9.2 % 04/06/24 05:46 Eos % (Auto) 1.4 % 04/06/24 05:46 Baso % (Auto) 0.4 % 04/06/24 05:46 Neut # (Auto) 6.13 10^3/uL (1.8-7.7) 04/06/24 05:46 Lymph # (Auto) 0.9 10^3/uL (0.8-4.8) 04/06/24 05:46 [place] # (Auto) 0.7 10^3/uL (0.2-0.9) 04/06/24 05:46 Eos # (Auto) 0.1 10^3/uL (0.0-0.8) 04/06/24 05:46 Baso # (Auto) 0.0 10^3/uL (0.0-0.1) 04/06/24 05:46 Nucleated RBC % (auto) 0 % 04/06/24 05:46 Nucleated RBCs # 0.0 /100WBC 04/06/24 05:46 Sodium 137 mmol/L (136-145) 04/06/24 05:46 Potassium 3.4 mmol/L (3.5-5.1) L 04/06/24 05:46 Chloride 100 mmol/L (98-107) 04/06/24 05:46 Carbon Dioxide 22 mmol/L (22-29) 04/06/24 05:46 Anion Gap 18.4 (5-19) 04/06/24 05:46 BUN 6 mg/dL (6-20) 04/06/24 05:46 Creatinine 0.6 mg/dL (0.7-1.2) L 04/06/24 05:46 GFR Calculation 140.9 mL/min (90-130) H 04/06/24 05:46 Glucose 116 mg/dL (65-115) H 04/06/24 05:46 POC Glucose 113 mg/dL (70-110) H 04/06/24 06:07 Estimat Average Glucose 134 04/05/24 04:41 Hemoglobin A1c 6.3 % (4.0-6.0) H 04/05/24 04:41 Calculated Osmolality 283 mOsm/kg (285-295) L 04/06/24 05:46 Lactic Acid 2.6 mmol/L (0.5-2.2) H 04/03/24 19:55 Lactic Acid (Sepsis) 2.7 mmol/L (0.5-2.2) H 04/03/24 00:28 Calcium 8.5 mg/dL (8.5-10.5) 04/06/24 05:46 Phosphorus 2.4 mg/dL (2.5-4.5) L 04/05/24 04:41 Magnesium 2.0 mg/dL (1.7-2.3) 04/05/24 04:41 Total Bilirubin 0.7 mg/dL (0.15-1.2) 04/05/24 04:41 AST 15 U/L (0-40) 04/05/24 04:41 ALT 23 U/L (0-41) 04/05/24 04:41 Alkaline Phosphatase 66 U/L (40-130) 04/05/24 04:41 C-Reactive Protein 148.8 mg/L (0.0-4.9) H 04/04/24 02:32 Total Protein 6.5 g/dL (6.6-8.7) L 04/05/24 04:41 Albumin 3.3 g/dL (3.5-5.2) L 04/05/24 04:41 Globulin 3.2 g/dL (1.3-4.6) 04/05/24 04:41 Triglycerides 116 mg/dL (0-150) 04/05/24 04:41 Cholesterol 129 mg/dL (0-200) 04/05/24 04:41 LDL Cholesterol, Calc 75 mg/dL (50-129) 04/05/24 04:41 HDL Cholesterol 31 mg/dL (60-100) L 04/05/24 04:41 LDL/HDL Ratio 2.42 RATIO (0.00-3.22) 04/05/24 04:41 Cholesterol/HDL Ratio 4.16 mg/dL (1.0-5.00) 04/05/24 04:41 PSA Screen 13.85 ng/mL (0-4) H 04/04/24 00:00 Procalcitonin 0.33 ng/mL (0-0.5) 04/04/24 02:32 TSH 1.05 uIU/mL (0.27-4.20) 04/04/24 02:32 Urine Color Yellow (Yellow) 04/03/24 19:13 Urine Appearance Cloudy (CLEAR) A 04/03/24 19:13 Urine pH 9 (5-7) H 04/03/24 19:13 Ur Specific [place] 1.010 (1.005-1.030) 04/03/24 19:13 Urine Protein Trace (Negative) 04/03/24 19:13 Urine Glucose (UA) Norm (Normal) 04/03/24 19:13 Urine Ketones 1+ (Negative) H 04/03/24 19:13 Urine Blood 2+ (Negative) H 04/03/24 19:13 Urine Nitrate Negative (Negative) 04/03/24 19:13 Urine Bilirubin Neg (Negative) 04/03/24 19:13 Urine Urobilinogen Neg mg/dL (Negative) 04/03/24 19:13 Ur Leukocyte Esterase 2+ (Negative) H 04/03/24 19:13 Urine RBC 5-10 /hpf (0-2) H 04/03/24 19:13 Urine WBC 55-80 /hpf (0-5) H 04/03/24 19:13 Ur Squamous Epith Cells 0-4 /hpf (0-5) H 04/03/24 19:13 Amorphous Sediment Not Reportable 04/03/24 19:13 Urine Bacteria 1+ /hpf (NONE) H 04/03/24 19:13 Urine Opiates Screen Negative ng/mL (Negative) 04/03/24 19:13 Ur Barbiturates Screen Negative ng/mL (Negative) 04/03/24 19:13 Ur Phencyclidine Scrn Negative ng/mL (Negative) 04/03/24 19:13 Ur Amphetamines Screen Negative ng/mL (Negative) 04/03/24 19:13 U Benzodiazepines Scrn Negative ng/mL (Negative) 04/03/24 19:13 Urine Cocaine Screen Negative ng/mL (Negative) 04/03/24 19:13 U Marijuana (THC) Screen Negative ng/mL (Negative) 04/03/24 19:13 Vitals Last Vital Signs Temp 98.6 F 04/06/24 07:26 Pulse 75 04/06/24 07:26 Resp 16 04/06/24 07:26 BP 125/83 04/06/24 07:26 Pulse Ox 95 04/06/24 07:26 O2 Del Method Room Air 04/06/24 07:26 Discharge Plan Discharge Patient Disposition: Home Condition: Stable Prescriptions: New acetaminophen 325 mg Tablet 650 mg PO Q6H PRN (Reason: Mild/Mod Pain Or Temp >/= 101) Qty: 60 0RF bisacodyl 5 mg Tablet,Delayed Release (Dr/Ec) 10 mg PO DAILY PRN (Reason: Constipation (see protocol)) Qty: 14 0RF tamsulosin 0.4 mg Capsule 0.4 mg PO DAILY Qty: 90 0RF metformin 500 mg tablet 500 mg PO BID Qty: 180 0RF ciprofloxacin HCl 500 mg tablet 500 mg PO BID Qty: 42 0RF Continued omeprazole 20 mg capsule,delayed release(DR/EC) 20 mg PO DAILY nystatin 100,000 unit/gram ointment 1 applic topical QID Qty: 30 0RF Discharge Orders: Discharge Order (Routine); Ordered 04/06/24 Ordered By: Manuel Hewitt Referrals: Carmelo Goins [Referring] - 7-10 days (Prostatitis We have notified your physician's clinic of the need for a follow-up appointment to be scheduled. If you have not heard from them within the next 2 business days, please call them directly. ) Coretta Zhang DO [Physician] - 04/15/24 9:00 am (your appointment [facility] at the [facility]) Discharge Diet: Diabetic Patient Instructions: Diabetes and Diet, Ciprofloxacin (By mouth), Metformin (By mouth), Tamsulosin (By mouth), Cartwright Catheter Care, Urinary Tract Infection in Men (GEN), Potassium Content of Foods List (DC), Type 2 Diabetes in Adults: New Diagnosis (GEN), Urinary Leg Bag (GEN), How to Change a Catheter Drainage Bag (GEN), Opioid Safety, Prostatitis (Acute) Activity Restrictions/Additional Instructions: Please follow-up with your primary provider for reassessment after complicated urinary infection, improved sepsis, prostatitis, prostate enlargement on CT, urinary retention. You are discharging with urinary catheter until a voiding trial can be performed by either urology or your primary provider. You are started on prostate medication tamsulosin. You are continued on ciprofloxacin for treatment of complicated urinary infection, prostatitis, for now continued for 3 weeks but with further reassessment with primary provider and urologist to consider if course needs to be extended. Please follow-up with your primary provider and urologist regarding large prostate and elevated PSA, possibly secondary to prostatitis/infection, however, this will need to be reassessed in follow-up to see that it is improving and/or perform additional assessments as per urology recommendation to make sure it is not related to a smaller chance of prostate cancer. Please follow-up with your primary doctor regarding diabetes, your A1c was 6.5. You are started on metformin. Start metformin at 500 mg daily if tolerating for a few days without any gastrointestinal symptoms increase to 500 mg twice daily and continue. Your potassium level is mildly low, please follow-up with primary provider for reassessment. Include foods rich in potassium. Discharge Attestations Time Spent in Discharge Care*: greater than 30 min Quality Metrics Clinical Quality Measures [ No reported AMI, CVA or VTE this stay] Coding Level of Care Code 77945 Total time (in minutes) for Discharge: 50 Diagnoses Sepsis secondary to UTI A41.9; N39.0 Urinary retention R33.9 Type 2 diabetes mellitus E11.9
[2024-04-06] MEDS: tamsulosin 0.4 mg Capsule PO (08:33)
[2024-04-06] MEDS: potassium chloride ER 20 mEq Tablet PO (08:33)
[2024-04-06 08:40] VITALS: PULSE 72; RESP 16; O2SAT 96
--- NOTE | 2024-04-06 11:07 | PC.NURSE ---
D/C was pending rounds with Dr. Hewitt and ride home. PT has someone coming to get him now.
== END 2024-04-06 11:32 | disposition home or self-care (01) | DRG 872 ==
LOC: ER 22:18 → MEDSURG 23:14
PROVIDERS: Student in an Organized Health Care Education/Training Program; Admitting Provider Internal Medicine; Emergency Provider Emergency Medicine; Visit Provider Internal Medicine
DX: A41.9 Sepsis, unspecified organism (principal); N39.0 Urinary tract infection, site not specified; K52.9 Noninfective gastroenteritis and colitis, unspecified; R33.9 Retention of urine, unspecified; E11.9 Type 2 diabetes mellitus without complications; R31.9 Hematuria, unspecified; N41.9 Inflammatory disease of prostate, unspecified
CPT/HCPCS: 36415; 36416; 51702; 51798; 71045; 74176; 80048; 80053; 80061; 80306; 81001; 82962; 83036; 83605; 83735; 84100; 84145; 84443; 85025; 86140; 87040; 87086; 93005; 94664; 96365; 96367; 96372; 96375; 99285; G0103; J1650; J1885; J1956; J2405; J2543; J2765; J3010; J7030

== ENCOUNTER 2024-04-19 11:59 | Outpatient (CLI) | payer SELFPAY | END 2024-04-19 12:00 | disposition home or self-care (01) | LOC: LAB 12:01 | PROVIDERS: Visit Provider Nurse Practitioner Family | DX: N41.9 Inflammatory disease of prostate, unspecified (principal) | CPT/HCPCS: 36415; 84153 ==

== ENCOUNTER 2024-05-07 04:00 | Emergency (ER) | payer SELFPAY ==
[2024-05-07 04:05] VITALS: BP 154/97; PULSE 104; RESP 20; TEMP 37; O2SAT 98
--- NOTE | 2024-05-07 04:07 | XRR_ITS ---
PROCEDURE INFORMATION: Exam: XR Abdomen Exam date and time: 05/07/2024 4:28 AM Age: 54 years old Clinical indication: Abdominal tenderness; Abdominal pain; Acute TECHNIQUE: Imaging protocol: Radiologic exam of the abdomen. Views: 2 Views. Upright and supine views. COMPARISON: CT kidney stone [id number] 04/03/2024 8:09 PM FINDINGS: Heart/Mediastinum: The heart is enlarged. Gastrointestinal tract: No dilated loops of large or small bowel is appreciated. There is a moderate amount of stool within the colon. Intraperitoneal space: Normal. No free air. Bones/joints: Unremarkable for age. XR/XR acute abdomen series [id number] IMPRESSION: 1. Cardiomegaly. 2. Fecal stasis.
--- NOTE | 2024-05-07 04:23 | ED_ITS ---
HPI - Abdominal Pain 2 General: Chief Complaint: Abdominal Pain Stated Complaint: abd pain Time Seen by Provider: 05/07/24 04:05 History of Present Illness: 54-year-old man with history of diabetes who presents emergency room with abdominal pain. He says been having some urinary issues recently and follow-up with urologist. Says not after he ate he felt like his belly was distended and hard and he had some epigastric abdominal pain. It kind of went away for a while and then came back and now it is not quite as bad as it was. No nausea or vomiting. No fevers. No dysuria. Related Data Home Medications Medication Instructions Recorded Confirmed omeprazole 20 mg capsule,delayed 20 mg PO DAILY 09/25/23 04/04/24 release Previous Rx's Medication Instructions Recorded nystatin 100,000 unit/gram topical 1 applic topical QID #30 grams 09/25/23 ointment acetaminophen 325 mg tablet 650 mg (2 x 325 mg) PO Q6H PRN 04/06/24 Mild/Mod Pain Or Temp >/= 101 #60 tabs bisacodyl 5 mg tablet,delayed 10 mg (2 x 5 mg) PO DAILY PRN 04/06/24 release Constipation (see protocol) #14 tabs ciprofloxacin HCl 500 mg tablet 500 mg PO BID #42 tabs 04/06/24 metformin 500 mg tablet 500 mg PO BID #180 tabs 04/06/24 tamsulosin 0.4 mg capsule 0.4 mg PO DAILY #90 caps 04/06/24 Allergies Allergy/AdvReac Type Severity Reaction Status Date / Time ampicillin Allergy Unknown Verified 04/04/24 00:33 Review of Systems 2 Narrative: Constitutional symptoms: Negative except as documented in HPI. Skin symptoms: Negative except as documented in HPI. Eye symptoms: Negative except as documented in HPI. ENMT symptoms: Negative except as documented in HPI. Respiratory symptoms: Negative except as documented in HPI. Cardiovascular symptoms: Negative except as documented in HPI. Gastrointestinal symptoms: Negative except as documented in HPI. Genitourinary symptoms: Negative except as documented in HPI. Musculoskeletal symptoms: Negative except as documented in HPI. Neurologic symptoms: Negative except as documented in HPI. Psychiatric symptoms: Negative except as documented in HPI. Endocrine symptoms: Negative except as documented in HPI. Physical Exam 2 Narrative: EXAM NARRATIVE: General: Alert, no acute distress. Skin: Warm, dry. Head: Normocephalic, atraumatic. Neck: Supple, trachea midline. Eye: Extraocular movements are intact. Ears, nose, mouth and throat: mucosa moist. Cardiovascular: Regular, Normal peripheral perfusion. Respiratory: Lungs are clear to auscultation, respirations are non-labored, breath sounds are equal, Symmetrical chest wall expansion. Gastrointestinal: Soft, Nontender, Non distended Musculoskeletal: Normal ROM, no deformity. Neurological: Alert and oriented, No focal neurological deficit observed. Psychiatric: Cooperative, appropriate mood & affect. Course 2 Vital Signs: Vital signs: Vital Signs Temperature 98.6 F 05/07/24 04:05 Pulse Rate 102 H 05/07/24 04:28 Respiratory Rate 18 05/07/24 04:28 Blood Pressure 149/95 05/07/24 04:28 Pulse Oximetry 99 05/07/24 04:28 MDM - Abdominal Pain Medical Decision Making Acute abdominal series: chest x-ray: No acute process. No obvious infiltrates. No pneumothorax. No cardiomegaly. This was reviewed and interpreted by myself the emergency room physician Abdomen x-ray: Nonspecific bowel gas pattern. No evidence of free air or obstruction. This was reviewed and interpreted by myself the emergency room physician. Lab Review: Laboratory results were reviewed and interpreted by myself the emergency room physician. Lab work is unremarkable. No leukocytosis. No anemia. No renal failure. Glucose slightly high at 162. Urine is negative for infection. I reviewed the patient's medical record. Reexamination: Patient remained stable. No increased work of breathing. No altered mental status. No focal motor deficits. Assessment and plan: Abdominal pain -No obvious emergent etiology for his abdominal pain which has since resolved - Discharged home - Discussed findings and plan with patient. Answered any questions. - All laboratory values were reviewed and interpreted personally by myself, the ER physician - All imaging was reviewed and interpreted personally by myself, the ER physician. - Evaluation and treatment of this problem were appropriate in the emergency setting Lab Data 05/07/24 04:15 05/07/24 04:15 Labs/Radiology: Laboratory Results WBC 11.38 10^3/uL (3.29-11.43) 05/07/24 04:15 RBC 5.06 10^6/uL (3.85-5.65) 05/07/24 04:15 Hgb 15.10 g/dL (11.27-16.99) 05/07/24 04:15 Hct 44.3 % (37-53) 05/07/24 04:15 MCV 87.5 fl (82-101) 05/07/24 04:15 MCH 29.8 pg (27-33) 05/07/24 04:15 MCHC 34.1 g/dL (30-55) 05/07/24 04:15 RDW 13.0 % (12.1-15.1) 05/07/24 04:15 Plt Count 234 10^3/cmm (157-399) 05/07/24 04:15 MPV 11.4 fL (7.4-10.4) H 05/07/24 04:15 Neut % (Auto) 61.8 % 05/07/24 04:15 Lymph % (Auto) 25.0 % 05/07/24 04:15 [place] % (Auto) 7.6 % 05/07/24 04:15 Eos % (Auto) 4.7 % 05/07/24 04:15 Baso % (Auto) 0.5 % 05/07/24 04:15 Neut # (Auto) 7.03 10^3/uL (1.8-7.7) 05/07/24 04:15 Lymph # (Auto) 2.9 10^3/uL (0.8-4.8) 05/07/24 04:15 [place] # (Auto) 0.9 10^3/uL (0.2-0.9) 05/07/24 04:15 Eos # (Auto) 0.5 10^3/uL (0.0-0.8) 05/07/24 04:15 Baso # (Auto) 0.1 10^3/uL (0.0-0.1) 05/07/24 04:15 Nucleated RBC % (auto) 0 % 05/07/24 04:15 Nucleated RBCs # 0.0 /100WBC 05/07/24 04:15 Sodium 136 mmol/L (136-145) 05/07/24 04:15 Potassium 3.8 mmol/L (3.5-5.1) 05/07/24 04:15 Chloride 100 mmol/L (98-107) 05/07/24 04:15 Carbon Dioxide 22 mmol/L (22-29) 05/07/24 04:15 Anion Gap 17.8 (5-19) 05/07/24 04:15 BUN 14 mg/dL (6-20) 05/07/24 04:15 Creatinine 0.7 mg/dL (0.7-1.2) 05/07/24 04:15 GFR Calculation 118.0 mL/min (90-130) 05/07/24 04:15 Glucose 162 mg/dL (65-115) H 05/07/24 04:15 Calculated Osmolality 286 mOsm/kg (285-295) 05/07/24 04:15 Calcium 9.0 mg/dL (8.5-10.5) 05/07/24 04:15 Total Bilirubin 0.3 mg/dL (0.15-1.2) 05/07/24 04:15 AST 16 U/L (0-40) 05/07/24 04:15 ALT 27 U/L (0-41) 05/07/24 04:15 Alkaline Phosphatase 71 U/L (40-130) 05/07/24 04:15 C-Reactive Protein 4.1 mg/L (0.0-4.9) 05/07/24 04:15 Total Protein 7.6 g/dL (6.6-8.7) 05/07/24 04:15 Albumin 4.4 g/dL (3.5-5.2) 05/07/24 04:15 Globulin 3.2 g/dL (1.3-4.6) 05/07/24 04:15 Urine Color Yellow (Yellow) 05/07/24 04:50 Urine Appearance Clear (CLEAR) 05/07/24 04:50 Urine pH 6.5 (5-7) 05/07/24 04:50 Ur Specific [place] 1.014 (1.005-1.030) 05/07/24 04:50 Urine Protein Negative (Negative) 05/07/24 04:50 Urine Glucose (UA) Negative (Normal) 05/07/24 04:50 Urine Ketones Negative (Negative) 05/07/24 04:50 Urine Blood Negative (Negative) 05/07/24 04:50 Urine Nitrate Negative (Negative) 05/07/24 04:50 Urine Bilirubin Negative (Negative) 05/07/24 04:50 Urine Urobilinogen 0.2 mg/dL (Negative) 05/07/24 04:50 Ur Leukocyte Esterase Negative (Negative) 05/07/24 04:50 Urine RBC 0-2 /hpf (0-2) 05/07/24 04:50 Urine WBC 0-5 /hpf (0-5) 05/07/24 04:50 Ur Squamous Epith Cells 0-5 /hpf (0-5) 05/07/24 04:50 Amorphous Sediment Not Reportable 05/07/24 04:50 Urine Bacteria None seen /hpf (NONE) 05/07/24 04:50 Hyaline Casts 0-4 /lpf H 05/07/24 04:50 XR interpretation done by ED provider, pending radiology final review Discharge Plan Discharge Patient Disposition: Home Clinical Impression: Abdominal pain Condition: Stable Prescriptions: No Action omeprazole 20 mg capsule,delayed release(DR/EC) 20 mg PO DAILY nystatin 100,000 unit/gram ointment 1 applic topical QID Qty: 30 0RF acetaminophen 325 mg Tablet 650 mg PO Q6H PRN (Reason: Mild/Mod Pain Or Temp >/= 101) Qty: 60 0RF bisacodyl 5 mg Tablet,Delayed Release (Dr/Ec) 10 mg PO DAILY PRN (Reason: Constipation (see protocol)) Qty: 14 0RF tamsulosin 0.4 mg Capsule 0.4 mg PO DAILY Qty: 90 0RF metformin 500 mg tablet 500 mg PO BID Qty: 180 0RF ciprofloxacin HCl 500 mg tablet 500 mg PO BID Qty: 42 0RF Discharge Orders: Discharge ED (Routine); Ordered 05/07/24 Ordered By: Federica Thomas Discharge Diet: Usual diet Discharge Activity: Resume usual activity Patient Instructions: Abdominal Pain (ED) Activity Restrictions/Additional Instructions: Thank you for choosing [facility] for your healthcare needs today. Please realize this is an emergency room and that we are providing you with a medical screening exam and this may not be complete and all inclusive of all the testing and or work up that you may need to determine your ailment or severity of your illness. You have been screened and evaluated and felt safe for discharge. Health conditions do change or evolve sometimes and as such it is important that you follow up with your Primary Doctor to be re checked, 3-5 days is a general good time frame for follow up. You are always welcome to return to the ED for re assessment if your symptoms are worsening or you have new concerns Coding Level of Care Code ED Developmental Behavioral Physician for Jhonatan Curiel
[2024-05-07 04:26] LABS: Basophils # 0.1 10^3/uL (0.0-0.1); Basophils % 0.5 %; Eosinophils # 0.5 10^3/uL (0.0-0.8); Eosinophils % 4.7 %; Hematocrit 44.3 % (37-53); Lymphocytes # 2.9 10^3/uL (0.8-4.8); Mean Corpuscular HGB Conc 34.1 g/dL (30-55); Mean Corpuscular Hemoglobin 29.8 pg (27-33); Mean Corpuscular Volume 87.5 fl (82-101); Mean Platelet Volume 11.4 fL (7.4-10.4); Monocytes # 0.9 10^3/uL (0.2-0.9); Monocytes % 7.6 %; Neutrophils # 7.03 10^3/uL (1.8-7.7); Neutrophils % 61.8 %; Nucleated Red Blood Cells % 0 %; Platelet Count 234 10^3/cmm (157-399); Red Blood Count 5.06 10^6/uL (3.85-5.65); White Blood Count 11.38 10^3/uL (3.29-11.43)
[2024-05-07 04:28] VITALS: BP 149/95; PULSE 102; RESP 18; O2SAT 99
[2024-05-07 04:42] LABS: Alanine Aminotransferase 27 U/L (0-41); Albumin Level 4.4 g/dL (3.5-5.2); Alkaline Phosphatase 71 U/L (40-130); Anion Gap 17.8 (5-19); Aspartate Amino Transferase 16 U/L (0-40); Blood Urea Nitrogen 14 mg/dL (6-20); C Reactive Protein 4.1 mg/L (0.0-4.9); Carbon Dioxide 22 mmol/L (22-29); Chloride 100 mmol/L (98-107); Globulin 3.2 g/dL (1.3-4.6); Glucose 162 mg/dL (65-115); Osmolality Calculated 286 mOsm/kg (285-295); Potassium 3.8 mmol/L (3.5-5.1); Sodium 136 mmol/L (136-145); Total Bilirubin 0.3 mg/dL (0.15-1.2); Total Protein 7.6 g/dL (6.6-8.7)
[2024-05-07 04:54] LABS: Bilirubin Urine Negative (Negative); Blood Urine Negative (Negative); Glucose Urine UA Negative (Normal); Ketones Urine Negative (Negative); Leukocyte Esterase Urine Negative (Negative); Nitrate Urine Negative (Negative); Protein Urine Negative (Negative); Specific Gravity, Urine 1.014 (1.005-1.030); Urine Appearance Clear (CLEAR); Urine Color Yellow (Yellow); Urobilinogen Urine 0.2 mg/dL (Negative); pH Urine 6.5 (5-7)
[2024-05-07 04:59] LABS: Bacteria Urine None Seen /hpf; Hyaline Casts Urine 0-4 /lpf; RBC Urine 0-2 /hpf (0-2); Squamous Epithelial Cell Urine 0-5 /hpf (0-5); WBC Urine 0-5 /hpf (0-5)
[2024-05-07 05:13] VITALS: BP 154/97; PULSE 78; RESP 16; O2SAT 96
== END 2024-05-07 05:15 | disposition home or self-care (01) ==
PROVIDERS: Emergency Provider Emergency Medicine
DX: R10.13 Epigastric pain (principal); Z79.84 Long term (current) use of oral hypoglycemic drugs
CPT/HCPCS: 74022; 80053; 81001; 85025; 86140; 99284

== ENCOUNTER 2024-05-27 12:18 | Emergency (ER) | payer SELFPAY ==
--- NOTE | 2024-05-27 12:18 | ECG_ITS ---
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 Measurements Intervals [place] Rate: 77 P: 0 TX: 162 QRS: 21 QRSD: 106 T: 60 QT: 315 QTc: 357 Interpretive Statements SINUS RHYTHM NONSPECIFIC T-WAVE ABNORMALITY Compared to ECG 04/03/2024 19:54:37 Sinus tachycardia no longer present T-wave abnormality still present Electronically Signed On 05-27-2024 14:42:24 CDT by Ranjeet Toscano M.D. [id number]
--- NOTE | 2024-05-27 12:20 | XR_ITS ---
WS: [id number] Examination: XR chest 1V portable [id number] Reason for Exam: cp Date: 05/27/2024 Comparison: 05/07/2024 Findings: The heart is not enlarged. The mediastinum is not widened. There is no evidence of pulmonary edema or large pleural effusion. There is no dense consolidative ch sarbjit. XR/XR chest 1V portable [id number] Impression: No acute lung process is seen.
[2024-05-27 12:26] VITALS: BP 135/93; PULSE 79; RESP 18; TEMP 36.8; O2SAT 97; BMI 33.5
[2024-05-27 12:51] LABS: Charge for UA Resulting for Rev
[2024-05-27 12:57] LABS: Bilirubin Urine Negative (Negative); Blood Urine Negative (Negative); Glucose Urine UA Negative (Normal); Ketones Urine Negative (Negative); Leukocyte Esterase Urine Trace (Negative); Nitrate Urine Negative (Negative); Protein Urine Negative (Negative); Specific Gravity, Urine 1.009 (1.005-1.030); Urine Appearance Clear (CLEAR); Urine Color Yellow (Yellow); Urobilinogen Urine 0.2 mg/dL (Negative); pH Urine 8.5 (5-7)
[2024-05-27 13:05] LABS: UA Manual Slide Review YES; UA Slide Review UA Slide Review Perf
[2024-05-27 13:08] LABS: Add Urine Culture? Yes; Bacteria Urine TRACE /hpf; RBC Urine 0-4 /hpf (0-2); Renal Epithelial Cells Urine 2 /hpf; Squamous Epithelial Cell Urine 0-4 /hpf (0-5); WBC Urine 25-40 /hpf (0-5)
[2024-05-27 13:14] LABS: Basophils # 0.1 10^3/uL (0.0-0.1); Basophils % 0.8 %; Eosinophils # 0.4 10^3/uL (0.0-0.8); Eosinophils % 4.4 %; Hematocrit 43.9 % (37-53); Lymphocytes # 1.5 10^3/uL (0.8-4.8); Lymphocytes % 18.7 %; Mean Corpuscular HGB Conc 34.6 g/dL (30-55); Mean Corpuscular Hemoglobin 30.5 pg (27-33); Mean Corpuscular Volume 88.2 fl (82-101); Mean Platelet Volume 10.7 fL (7.4-10.4); Monocytes # 0.5 10^3/uL (0.2-0.9); Monocytes % 6.6 %; Neutrophils # 5.44 10^3/uL (1.8-7.7); Nucleated Red Blood Cells % 0 %; Platelet Count 274 10^3/cmm (157-399); Red Blood Count 4.98 10^6/uL (3.85-5.65); Red Cell Distribution Width 13.1 % (12.1-15.1); White Blood Count 7.88 10^3/uL (3.29-11.43)
[2024-05-27 13:42] LABS: Troponin(5th) Baseline 7 ng/L (0-15)
[2024-05-27 13:53] LABS: Alanine Aminotransferase 33 U/L (0-41); Albumin Level 4.3 g/dL (3.5-5.2); Alkaline Phosphatase 70 U/L (40-130); Anion Gap 18.6 (5-19); Aspartate Amino Transferase 22 U/L (0-40); Blood Urea Nitrogen 9 mg/dL (6-20); Calcium 8.7 mg/dL (8.5-10.5); Carbon Dioxide 22 mmol/L (22-29); Chloride 101 mmol/L (98-107); Creatinine Clr Calc Pharmacy 153.1559; Glucose 141 mg/dL (65-115); Lipase 45 U/L (13-60); NT Pro B Type Natriuretic Pept < 36 pg/mL (0-125); Osmolality Calculated 287 mOsm/kg (285-295); Potassium 3.6 mmol/L (3.5-5.1); Sodium 138 mmol/L (136-145); Total Bilirubin 0.5 mg/dL (0.15-1.2); Total Protein 7.3 g/dL (6.6-8.7)
--- NOTE | 2024-05-27 14:20 | ECG_ITS ---
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 Measurements Intervals [place] Rate: 67 P: 7 DE: 180 QRS: 14 QRSD: 104 T: 31 QT: 419 QTc: 444 Interpretive Statements SINUS RHYTHM NONSPECIFIC T-WAVE ABNORMALITY Compared to ECG 05/27/2024 12:18:58 No significant changes Electronically Signed On 05-27-2024 16:08:27 CDT by Ranjeet Toscano M.D. [id number]
[2024-05-27 16:13] VITALS: BP 127/77; RESP 18; O2SAT 100
--- NOTE | 2024-05-27 16:13 | W.ED.BACK ---
HPI - Back Pain/Injury General: Chief Complaint: Back Pain/Injury Stated Complaint: upper back pain / SOB Time Seen by Provider: 05/27/24 15:53 History of Present Illness: 54-year-old male patient comes in today with complaints of left flank pain. Patient reports no nausea or vomiting. Patient reports movement exacerbates pain. Patient appears nontoxic. Patient does have a history of urinary tract infection in February that caused sepsis. Patient had been seen again and April for similar complaints but no significant abnormalities were noted at that time. Patient denies any falls or injury. Patient has been taking his routine medications including Flomax. Patient has followed up with a urologist for further evaluation due to his urinary sepsis. Related Data Home Medications Medication Instructions Recorded Confirmed omeprazole 20 mg capsule,delayed 20 mg PO DAILY 09/25/23 04/04/24 release Previous Rx's Medication Instructions Recorded nystatin 100,000 unit/gram topical 1 applic topical QID #30 grams 09/25/23 ointment acetaminophen 325 mg tablet 650 mg (2 x 325 mg) PO Q6H PRN 04/06/24 Mild/Mod Pain Or Temp >/= 101 #60 tabs bisacodyl 5 mg tablet,delayed 10 mg (2 x 5 mg) PO DAILY PRN 04/06/24 release Constipation (see protocol) #14 tabs ciprofloxacin HCl 500 mg tablet 500 mg PO BID #42 tabs 04/06/24 metformin 500 mg tablet 500 mg PO BID #180 tabs 04/06/24 tamsulosin 0.4 mg capsule 0.4 mg PO DAILY #90 caps 04/06/24 levofloxacin 750 mg tablet 750 mg PO DAILY 7 days #7 tabs 05/27/24 methocarbamol 750 mg tablet 750 mg PO Q6H PRN back pain #20 05/27/24 tabs Allergies Allergy/AdvReac Type Severity Reaction Status Date / Time ampicillin Allergy Unknown Verified 04/04/24 00:33 Review of Systems General: Reports: 10 or more systems reviewed and unremarkable except in HPI and below : Reports: flank pain Physical Exam Const: COMMON NORMALS: alert HENMT: COMMON NORMALS: normocephalic HEAD & SCALP: normocephalic Neck/C-Spine: COMMON NORMALS: full ROM Resp: COMMON NORMALS: normal respiratory effort and clear to auscultation bilaterally AUSCULTATION: clear to auscultation bilaterally Cardio: COMMON NORMALS: regular rate and regular rhythm RATE: regular rate RHYTHM: regular rhythm GI: COMMON NORMALS: non-tender : BLADDER/KIDNEY EXAM: Yes CVA tenderness on the left Back/Pelvis: GENERAL BACK: Yes CVA tenderness Extremity: COMMON NORMALS: normal to inspection Neuro: SENSORIUM/ORIENTATION: Yes alert Skin: COMMON NORMALS: turgor normal GENERAL SKIN EXAM: turgor normal Course Vital Signs: Vital signs: Vital Signs Temperature 98.2 F 05/27/24 12:26 Pulse Rate 79 05/27/24 12:26 Respiratory Rate 18 05/27/24 16:13 Blood Pressure 127/77 05/27/24 16:13 Pulse Oximetry 100 05/27/24 16:13 Oxygen Delivery Me thod Room Air 05/27/24 16:13 MDM - Back Pain/Injury Medical Decision Making Patient came in today with left flank pain. Exam was unremarkable except for some left CVA tenderness. Abdomen soft nontender. Vital signs were normal. Differential diagnosis includes pyelonephritis, urinary tract infection, urinary sepsis, gastritis, muscle strain. I reviewed the record including 2 CT scans of the abdomen and pelvis and none have shown renal calculi. And patient has no history of renal calculi. CBC CMP was unremarkable. Urinalysis had a large amount of white blood cells. Believe patient probably has a left pyelonephritis. Patient be started on Levaquin and recommended to follow back up with urologist office. Case management was requested to ensure for follow-up. Labs 05/27/24 13:05 05/27/24 13:05 Radiology Impressions Chest X-Ray 05/27/24 12:20 Impression: No acute lung process is seen. Laboratory Results WBC 7.88 10^3/uL (3.29-11.43) 05/27/24 13:05 RBC 4.98 10^6/uL (3.85-5.65) 05/27/24 13:05 Hgb 15.20 g/dL (11.27-16.99) 05/27/24 13:05 Hct 43.9 % (37-53) 05/27/24 13:05 MCV 88.2 fl (82-101) 05/27/24 13:05 MCH 30.5 pg (27-33) 05/27/24 13:05 MCHC 34.6 g/dL (30-55) 05/27/24 13:05 RDW 13.1 % (12.1-15.1) 05/27/24 13:05 Plt Count 274 10^3/cmm (157-399) 05/27/24 13:05 MPV 10.7 fL (7.4-10.4) H 05/27/24 13:05 Neut % (Auto) 69.0 % 05/27/24 13:05 Lymph % (Auto) 18.7 % 05/27/24 13:05 [place] % (Auto) 6.6 % 05/27/24 13:05 Eos % (Auto) 4.4 % 05/27/24 13:05 Baso % (Auto) 0.8 % 05/27/24 13:05 Neut # (Auto) 5.44 10^3/uL (1.8-7.7) 05/27/24 13:05 Lymph # (Auto) 1.5 10^3/uL (0.8-4.8) 05/27/24 13:05 [place] # (Auto) 0.5 10^3/uL (0.2-0.9) 05/27/24 13:05 Eos # (Auto) 0.4 10^3/uL (0.0-0.8) 05/27/24 13:05 Baso # (Auto) 0.1 10^3/uL (0.0-0.1) 05/27/24 13:05 Nucleated RBC % (auto) 0 % 05/27/24 13:05 Nucleated RBCs # 0.0 /100WBC 05/27/24 13:05 Sodium 138 mmol/L (136-145) 05/27/24 13:05 Potassium 3.6 mmol/L (3.5-5.1) 05/27/24 13:05 Chloride 101 mmol/L (98-107) 05/27/24 13:05 Carbon Dioxide 22 mmol/L (22-29) 05/27/24 13:05 Anion Gap 18.6 (5-19) 05/27/24 13:05 BUN 9 mg/dL (6-20) 05/27/24 13:05 Creatinine 0.7 mg/dL (0.7-1.2) 05/27/24 13:05 GFR Calculation 118.0 mL/min (90-130) 05/27/24 13:05 Glucose 141 mg/dL (65-115) H 05/27/24 13:05 Calculated Osmolality 287 mOsm/kg (285-295) 05/27/24 13:05 Calcium 8.7 mg/dL (8.5-10.5) 05/27/24 13:05 Total Bilirubin 0.5 mg/dL (0.15-1.2) 05/27/24 13:05 AST 22 U/L (0-40) 05/27/24 13:05 ALT 33 U/L (0-41) 05/27/24 13:05 Alkaline Phosphatase 70 U/L (40-130) 05/27/24 13:05 Troponin T Baseline 7 ng/L (0-15) 05/27/24 13:05 Troponin T 120 Minute 6.00 ng/L (0-15) 05/27/24 15:19 Delta Troponin T -1.00 ABS# (0-10) L 05/27/24 15:19 NT-Pro-B Natriuret Pep < 36 pg/mL (0-125) 05/27/24 13:05 Total Protein 7.3 g/dL (6.6-8.7) 05/27/24 13:05 Albumin 4.3 g/dL (3.5-5.2) 05/27/24 13:05 Globulin 3.0 g/dL (1.3-4.6) 05/27/24 13:05 Lipase 45 U/L (13-60) 05/27/24 13:05 Urine Color Yellow (Yellow) 05/27/24 12:34 Urine Appearance Clear (CLEAR) 05/27/24 12:34 Urine pH 8.5 (5-7) A 05/27/24 12:34 Ur Specific [place] 1.009 (1.005-1.030) 05/27/24 12:34 Urine Protein Negative (Negative) 05/27/24 12:34 Urine Glucose (UA) Negative (Normal) 05/27/24 12:34 Urine Ketones Negative (Negative) 05/27/24 12:34 Urine Blood Negative (Negative) 05/27/24 12:34 Urine Nitrate Negative (Negative) 05/27/24 12:34 Urine Bilirubin Negative (Negative) 09/05/24 12:34 Urine Urobilinogen 0.2 mg/dL (Negative) 05/27/24 12:34 Ur Leukocyte Esterase Trace (Negative) A 05/27/24 12:34 Urine RBC 0-4 /hpf (0-2) H 05/27/24 12:34 Urine WBC 25-40 /hpf (0-5) H 05/27/24 12:34 Ur Squamous Epith Cells 0-4 /hpf (0-5) H 05/27/24 12:34 Ur Renal Epithelial Cell 2 /hpf 05/27/24 12:34 Amorphous Sediment Not Reportable 05/27/24 12:34 Urine Bacteria Trace /hpf (NONE) 05/27/24 12:34 Urine Yeast 1+ /hpf H 05/27/24 12:34 No radiology studies performed this visit Discharge Plan Discharge Patient Disposition: Home Clinical Impression: Acute UTI Condition: Stable Prescriptions: New levofloxacin 750 mg tablet 750 mg PO DAILY 7 Days Qty: 7 0RF methocarbamol 750 mg tablet 750 mg PO Q6H PRN (Reason: back pain) Qty: 20 0RF No Action omeprazole 20 mg capsule,delayed release(DR/EC) 20 mg PO DAILY nystatin 100,000 unit/gram ointment 1 applic topical QID Qty: 30 0RF acetaminophen 325 mg Tablet 650 mg PO Q6H PRN (Reason: Mild/Mod Pain Or Temp >/= 101) Qty: 60 0RF bisacodyl 5 mg Tablet,Delayed Release (Dr/Ec) 10 mg PO DAILY PRN (Reason: Constipation (see protocol)) Qty: 14 0RF tamsulosin 0.4 mg Capsule 0.4 mg PO DAILY Qty: 90 0RF metformin 500 mg tablet 500 mg PO BID Qty: 180 0RF ciprofloxacin HCl 500 mg tablet 500 mg PO BID Qty: 42 0RF Discharge Orders: Discharge ED (Routine); Ordered 05/27/24 Ordered By: Fahad Arana Discharge Diet: Usual diet Discharge Activity: Increase activity as tolerated Patient Instructions: Urinary Tract Infection in Men (DC) Coding Level of Care Code ED Aviation Ordnance Officer for Jhonatan Curiel
[2024-05-27] MEDS: levoFLOXacin 750 mg Tablet PO (16:24)
[2024-05-27 17:10] VITALS: BP 146/93; PULSE 69; RESP 16; O2SAT 100
--- NOTE | 2024-05-28 03:24 | DCPLANNER ---
Referral for urology sent to [facility]
== END 2024-05-27 17:13 | disposition home or self-care (01) ==
PROVIDERS: Emergency Medicine; Emergency Provider Nurse Practitioner Family
DX: N39.0 Urinary tract infection, site not specified (principal); Z79.84 Long term (current) use of oral hypoglycemic drugs
CPT/HCPCS: 36415; 71045; 80053; 81003; 81015; 83690; 83880; 84484; 85025; 87086; 93005; 99285

== ENCOUNTER 2024-05-30 17:50 | Emergency (ER) | payer SELFPAY ==
[2024-05-30 18:05] VITALS: BP 148/90; PULSE 87; RESP 16; TEMP 36.6; O2SAT 96; BMI 33.2
[2024-05-30 19:03] LABS: Basophils % 0.4 %; Eosinophils # 0.1 10^3/uL (0.0-0.8); Eosinophils % 1.4 %; Hematocrit 45.9 % (37-53); Lymphocytes # 1.9 10^3/uL (0.8-4.8); Lymphocytes % 19.2 %; Mean Corpuscular HGB Conc 33.8 g/dL (30-55); Mean Corpuscular Hemoglobin 29.9 pg (27-33); Mean Corpuscular Volume 88.6 fl (82-101); Mean Platelet Volume 10.6 fL (7.4-10.4); Monocytes # 0.7 10^3/uL (0.2-0.9); Monocytes % 6.5 %; Neutrophils % 72.2 %; Nucleated Red Blood Cells % 0 %; Platelet Count 287 10^3/cmm (157-399); Red Blood Count 5.18 10^6/uL (3.85-5.65); Red Cell Distribution Width 12.8 % (12.1-15.1); White Blood Count 10.11 10^3/uL (3.29-11.43)
[2024-05-30 19:17] LABS: D Dimer <= 0.27 ug/mLFEU (0-0.59)
[2024-05-30 19:21] LABS: Alanine Aminotransferase 34 U/L (0-41); Albumin Level 4.6 g/dL (3.5-5.2); Alkaline Phosphatase 71 U/L (40-130); Anion Gap 17.6 (5-19); Aspartate Amino Transferase 19 U/L (0-40); Blood Urea Nitrogen 9 mg/dL (6-20); C Reactive Protein 3.6 mg/L (0.0-4.9); Calcium 9.5 mg/dL (8.5-10.5); Carbon Dioxide 25 mmol/L (22-29); Chloride 99 mmol/L (98-107); Creatinine Clr Calc Pharmacy 152.5296; Globulin 3.3 g/dL (1.3-4.6); Glucose 151 mg/dL (65-115); Lipase 39 U/L (13-60); Osmolality Calculated 288 mOsm/kg (285-295); Potassium 3.6 mmol/L (3.5-5.1); Sodium 138 mmol/L (136-145); Total Bilirubin 0.3 mg/dL (0.15-1.2); Total Protein 7.9 g/dL (6.6-8.7)
[2024-05-30 19:34] VITALS: BP 136/97; PULSE 81; RESP 18; O2SAT 100
--- NOTE | 2024-05-30 19:41 | XRR_ITS ---
PROCEDURE INFORMATION: Exam: XR Abdomen Exam date and time: 05/30/2024 7:52 PM Age: 54 years old Clinical indication: Patient HX: Flank/lower abdominal pain TECHNIQUE: Imaging protocol: Radiologic exam of the abdomen. Views: Frontal supine view of the abdomen. 1 View. COMPARISON: CR XR acute abdomen series [id number] 05/07/2024 4:28 AM FINDINGS: Gastrointestinal tract: Small to moderate stool, particularly in the proximal colon. Normal bowel gas pattern. Bones/joints: Mild degenerative changes of bilateral hips. XR/XR KUB portable [id number] IMPRESSION: 1. No acute findings. 2. Small to moderate colonic stool may represent constipation.
--- NOTE | 2024-05-30 19:56 | ED_ITS ---
HPI - Abdominal Pain 2 General: Chief Complaint: Abdominal Pain Stated Complaint: left side and abdominal pain, SOB, Dizzy Time Seen by Provider: 05/30/24 18:21 History of Present Illness: 54-year-old gentleman here for his third visit in the last month or so for abdominal pain. He was seen a few days ago, diagnosed with urinary tract infection. Has been taking levofloxacin. He has not noted urine symptoms. He does note generalized abdominal and back pain that continues since that time. He believes he may be constipated. No vomiting. No fever. He admits to being anxious because in March he was diagnosed with sepsis due to urinary tract infection. Related Data Home Medications Medication Instructions Recorded Confirmed omeprazole 20 mg capsule,delayed 20 mg PO DAILY 09/25/23 04/04/24 release Previous Rx's Medication Instructions Recorded nystatin 100,000 unit/gram topical 1 applic topical QID #30 grams 09/25/23 ointment acetaminophen 325 mg tablet 650 mg (2 x 325 mg) PO Q6H PRN 04/06/24 Mild/Mod Pain Or Temp >/= 101 #60 tabs bisacodyl 5 mg tablet,delayed 10 mg (2 x 5 mg) PO DAILY PRN 04/06/24 release Constipation (see protocol) #14 tabs ciprofloxacin HCl 500 mg tablet 500 mg PO BID #42 tabs 04/06/24 metformin 500 mg tablet 500 mg PO BID #180 tabs 04/06/24 tamsulosin 0.4 mg capsule 0.4 mg PO DAILY #90 caps 04/06/24 levofloxacin 750 mg tablet 750 mg PO DAILY 7 days #7 tabs 05/27/24 methocarbamol 750 mg tablet 750 mg PO Q6H PRN back pain #20 05/27/24 tabs lactulose 20 gram/30 mL oral 20 g (30 mL) PO BID #1,500 mL 05/30/24 solution Allergies Allergy/AdvReac Type Severity Reaction Status Date / Time ampicillin Allergy Unknown Verified 04/04/24 00:33 Physical Exam 2 Const: COMMON NORMALS: no acute distress GENERAL APPEARANCE: cooperative; not ill appearing and not frail appearing HENMT: COMMON NORMALS: normocephalic, atraumatic and Normal external nose present HEAD & SCALP: normocephalic and atraumatic FACE & SINUS: normal facial exam and face symmetric NOSE: Normal external nose present Eye: COMMON NORMALS: Equal, round and reactive pupils present and EOMs intact bilaterally PUPIL: Yes Equal, round and reactive pupils present Neck/C-Spine: GENERAL: Yes trachea midline Chest: CHEST: Yes Symmetrical chest wall rise Resp: COMMON NORMALS: normal respiratory effort, No retractions, No use of accessory muscles and clear to auscultation bilaterally AUSCULTATION: clear to auscultation bilaterally Cardio: COMMON NORMALS: regular rate and regular rhythm RATE: regular rate RHYTHM: regular rhythm GI: COMMON NORMALS: Normal to inspection, nondistended, normoactive bowel sounds present Extremity: COMMON NORMALS: no pedal edema Neuro: CADENCE COMA SCALE: document GCS findings Cadence coma scale eye opening: Spontaneous Cadence coma scale verbal response: Orientated [place] coma scale motor response: Obey commands Leroy coma scale total score: 15 S ENSORY EXAM: Yes extremities (intact) Psych: COMMON NORMALS: speech normal SPEECH: Yes normal speech Skin: COMMON NORMALS: no rashes or lesions noted GENERAL SKIN EXAM: no rashes or lesions noted Course 2 Vital Signs: Vital signs: Vital Signs Temperature 97.9 F 05/30/24 18:05 Pulse Rate 74 05/30/24 20:41 Respiratory Rate 18 05/30/24 20:41 Blood Pressure 155/110 05/30/24 20:41 Pulse Oximetry 99 05/30/24 20:41 Oxygen Delivery Me thod Room Air 05/30/24 20:41 MDM - Abdominal Pain Medical Decision Making Patient's vitals are normal. He is afebrile. CBC is normal. BMP shows a blood sugar 151. His CRP is completely normal at 3.6. Lipase is 39. Liver enzymes are normal. His x-ray shows a nonobstructive pattern, but there is significant stool burden. Urinalysis is negative now. He was encouraged to finish his antibiotics. Will prescribe laxatives for constipation. He was told to return for new or worsening symptoms. Lab Data 05/30/24 18:53 05/30/24 18:53 Labs/Radiology: Radiology Impressions KUB X-Ray 05/30/24 19:41 IMPRESSION: 1. No acute findings. 2. Small to moderate colonic stool may represent constipation. Laboratory Results WBC 10.11 10^3/uL (3.29-11.43) 05/30/24 18:53 RBC 5.18 10^6/uL (3.85-5.65) 05/30/24 18:53 Hgb 15.50 g/dL (11.27-16.99) 05/30/24 18:53 Hct 45.9 % (37-53) 05/30/24 18:53 MCV 88.6 fl (82-101) 05/30/24 18:53 MCH 29.9 pg (27-33) 05/30/24 18:53 MCHC 33.8 g/dL (30-55) 05/30/24 18:53 RDW 12.8 % (12.1-15.1) 05/30/24 18:53 Plt Count 287 10^3/cmm (157-399) 05/30/24 18:53 MPV 10.6 fL (7.4-10.4) H 05/30/24 18:53 Neut % (Auto) 72.2 % 05/30/24 18:53 Lymph % (Auto) 19.2 % 05/30/24 18:53 [place] % (Auto) 6.5 % 05/30/24 18:53 Eos % (Auto) 1.4 % 05/30/24 18:53 Baso % (Auto) 0.4 % 05/30/24 18:53 Neut # (Auto) 7.30 10^3/uL (1.8-7.7) 05/30/24 18:53 Lymph # (Auto) 1.9 10^3/uL (0.8-4.8) 05/30/24 18:53 [place] # (Auto) 0.7 10^3/uL (0.2-0.9) 05/30/24 18:53 Eos # (Auto) 0.1 10^3/uL (0.0-0.8) 05/30/24 18:53 Baso # (Auto) 0.0 10^3/uL (0.0-0.1) 05/30/24 18:53 Nucleated RBC % (auto) 0 % 05/30/24 18:53 Nucleated RBCs # 0.0 /100WBC 05/30/24 18:53 D-Dimer <= 0.27 ug/mLFEU (0-0.59) 05/30/24 18:53 Sodium 138 mmol/L (136-145) 05/30/24 18:53 Potassium 3.6 mmol/L (3.5-5.1) 05/30/24 18:53 Chloride 99 mmol/L (98-107) 05/30/24 18:53 Carbon Dioxide 25 mmol/L (22-29) 05/30/24 18:53 Anion Gap 17.6 (5-19) 05/30/24 18:53 BUN 9 mg/dL (6-20) 05/30/24 18:53 Creatinine 0.7 mg/dL (0.7-1.2) 05/30/24 18:53 GFR Calculation 118.0 mL/min (90-130) 05/30/24 18:53 Glucose 151 mg/dL (65-115) H 05/30/24 18:53 Calculated Osmolality 288 mOsm/kg (285-295) 05/30/24 18:53 Calcium 9.5 mg/dL (8.5-10.5) 05/30/24 18:53 Total Bilirubin 0.3 mg/dL (0.15-1.2) 05/30/24 18:53 AST 19 U/L (0-40) 05/30/24 18:53 ALT 34 U/L (0-41) 05/30/24 18:53 Alkaline Phosphatase 71 U/L (40-130) 05/30/24 18:53 C-Reactive Protein 3.6 mg/L (0.0-4.9) 05/30/24 18:53 Total Protein 7.9 g/dL (6.6-8.7) 05/30/24 18:53 Albumin 4.6 g/dL (3.5-5.2) 05/30/24 18:53 Globulin 3.3 g/dL (1.3-4.6) 05/30/24 18:53 Lipase 39 U/L (13-60) 05/30/24 18:53 Urine Color Yellow (Yellow) 05/30/24 20:37 Urine Appearance Error (CLEAR) A 05/30/24 20:37 Urine pH 8.0 (5-7) A 05/30/24 20:37 Ur Specific [place] 1.007 (1.005-1.030) 05/30/24 20:37 Urine Protein Negative (Negative) 05/30/24 20:37 Urine Glucose (UA) Negative (Normal) 05/30/24 20:37 Urine Ketones Negative (Negative) 05/30/24 20:37 Urine Blood Negative (Negative) 05/30/24 20:37 Urine Nitrate Negative (Negative) 05/30/24 20:37 Urine Bilirubin Negative (Negative) 05/30/24 20:37 Urine Urobilinogen 0.2 mg/dL (Negative) 05/30/24 20:37 Ur Leukocyte Esterase Negative (Negative) 05/30/24 20:37 Urine RBC 0-2 /hpf (0-2) 05/30/24 20:37 Urine WBC 0-5 /hpf (0-5) 05/30/24 20:37 Ur Squamous Epith Cells 0-5 /hpf (0-5) 05/30/24 20:37 Amorphous Sediment Not Reportable 05/30/24 20:37 Urine Bacteria None seen /hpf (NONE) 05/30/24 20:37 Hyaline Casts 0-4 /lpf H 05/30/24 20:37 All radiology interpretation(s) finalized by discharge Discharge Plan Discharge Patient Disposition: Home Clinical Impression: Constipation Condition: Stable Prescriptions: New lactulose 20 gram/30 mL solution 20 g PO BID Qty: 1500 0RF No Action omeprazole 20 mg capsule,delayed release(DR/EC) 20 mg PO DAILY nystatin 100,000 unit/gram ointment 1 applic topical QID Qty: 30 0RF acetaminophen 325 mg Tablet 650 mg PO Q6H PRN (Reason: Mild/Mod Pain Or Temp >/= 101) Qty: 60 0RF bisacodyl 5 mg Tablet,Delayed Release (Dr/Ec) 10 mg PO DAILY PRN (Reason: Constipation (see protocol)) Qty: 14 0RF tamsulosin 0.4 mg Capsule 0.4 mg PO DAILY Qty: 90 0RF metformin 500 mg tablet 500 mg PO BID Qty: 180 0RF ciprofloxacin HCl 500 mg tablet 500 mg PO BID Qty: 42 0RF levofloxacin 750 mg tablet 750 mg PO DAILY 7 Days Qty: 7 0RF methocarbamol 750 mg tablet 750 mg PO Q6H PRN (Reason: back pain) Qty: 20 0RF Discharge Orders: Discharge ED (Routine); Ordered 05/30/24 Ordered By: Maurice Gotti Patient Instructions: Constipation (ED), Opioid Safety, Pain Management Activity Restrictions/Additional Instructions: Return for fever greater than 100 degrees, vomiting liquids or medications, worsening pain despite treatment, other concerning symptoms. Medication as directed. Take it when you get home, and stay next to a bathroom for the next 24 hours or so. Start the other medication Friday, and take until bowel movements are regular, and soft. You may decrease dosage and stop the medication once bowel movements become regular. See your doctor this week. Coding Level of Care Code ED Paper Coating Machine Operator for Jhonatan Curiel
[2024-05-30 20:41] VITALS: BP 155/110; PULSE 74; RESP 18; O2SAT 99
[2024-05-30 20:43] LABS: Charge for UA Resulting for Rev
[2024-05-30 20:51] LABS: Bacteria Urine None Seen /hpf; Bilirubin Urine Negative (Negative); Blood Urine Negative (Negative); Glucose Urine UA Negative (Normal); Hyaline Casts Urine 0-4 /lpf; Ketones Urine Negative (Negative); Leukocyte Esterase Urine Negative (Negative); Nitrate Urine Negative (Negative); Protein Urine Negative (Negative); RBC Urine 0-2 /hpf (0-2); Specific Gravity, Urine 1.007 (1.005-1.030); Squamous Epithelial Cell Urine 0-5 /hpf (0-5); Urine Appearance Error (CLEAR); Urine Color Yellow (Yellow); Urobilinogen Urine 0.2 mg/dL (Negative); WBC Urine 0-5 /hpf (0-5)
--- NOTE | 2024-05-30 21:11 | PC.NURSE ---
Pt sent home with a bottle of Magnesium Citrate per Dr Gotti's orders.
[2024-05-30 21:32] VITALS: BP 175/94; PULSE 80; RESP 18; O2SAT 100
== END 2024-05-30 21:29 | disposition home or self-care (01) ==
PROVIDERS: Emergency Provider Emergency Medicine
DX: K59.00 Constipation, unspecified (principal); Z79.84 Long term (current) use of oral hypoglycemic drugs
CPT/HCPCS: 36415; 74018; 80053; 81003; 81015; 83690; 85025; 85378; 86140; 99284